=== PATIENT | female | born 1950 | race Caucasian/White ===

== ENCOUNTER 2024-12-21 09:25 | Outpatient (CLI) | payer MEDICARE, SELFPAY ==
--- NOTE | ~2024-12-21 | MM_ITS ---
EXAMINATION: MM screening ema BI w bruna HISTORY: Screening TECHNIQUE: Craniocaudal and mediolateral oblique 3-D tomosynthesis images were obtained and synthetic 2-D images were generated. CAD analysis was submitted and interpreted. COMPARISON: No prior mammogram is available for comparison at this institution. BREAST PARENCHYMAL COMPOSITION: Not dense: There are scattered areas of fibroglandular density. FINDINGS: There is no evidence of suspicious mass, calcification, or architectural distortion to sugg est malignancy in either breast. There has been no suspicious interval change. IMPRESSION: 1. No mammographic evidence of malignancy. 2. Recommend routine screening mammography in one year. BI-RADS Category 1: Negative Reviewed, dictated and finalized at location B.
--- OUTSIDE RECORDS SUMMARY | 2024-12-21 10:14 | XMS_ITS | Data Portability ---
Author Organization [place] [facility], Main Office Address [address] [place] [address] Care Team Providers Care Psychology Assistant Name Role Phone JOANNE MENDEZ Primary Care Provider Assessment Encounter Date Assessment Date Assessment LastModified by Organization Details LastModified Time 12/03/2022 12/03/2022 We will continue to monitor exam is normal keep regular appointment [email or web address] Not available 12/07/2022 23:04:18 12/19/2022 12/19/2022 Shoulder good Dyslipidemia atorvastatin Hypertension amlodipine monotherapy for now Low vitamin-D continue supplementation Annual wellness visit concluded mammogram and bone density ordered Follow-up 6 months [email or web address] Not available 12/27/2022 17:19:38 04/17/2023 04/17/2023 Hyperlipidemia atorvastatin low vitamin-D supplementation hypertension amlodipine follow-up 6 months continue current therapy [email or web address] Not available 04/26/2023 16:54:21 Plan of Treatment Reminders Order Date Submit Date Provider Last Modified By Organization Details Last Modified Time Details Appointments None recorded. Lab vitamin D, 25-hydroxy, total, serum 2022 023 [email or web address] [facility] (Lab), [address] [place], [address], 4 11:14:32 CBC w/ auto diff 2022 023 [email or web address] [facility] (Lab), [address] [place], [address], 3 09:21:27 lipid panel, serum 2022 023 [email or web address] [facility] (Lab), [address] [place], [address], 09:21:27 CMP, serum or plasma 2022 023 [email or web address] [facility] (Lab), [address] [place], [address], 09:21:27 Referral None recorded. Procedures None recorded. Surgeries None recorded. Imaging None recorded. Medication Orders ergocalcife rol (vitamin D2) 1,250 mcg (50,000 unit) capsule 2022 023 [email or web address] [id number], [address], [place], [id number], 16:24:45 Patient TargetsNo targets recorded. Patient Instructions Encounter Date Encounter Id Patient Instructions Last Modified By Organization Details Last Modified Time 12/19/2022 [id number] dementia rating scale-2* [email or web address] Not available 12/19/2022 16:24:45 alcohol misuse* [email or web address] Not available 12/19/2022 16:24:45 depression screening* [email or web address] Not available 12/19/2022 16:24:45 multi-dimensiona l health assessment questionnaire* [email or web address] Not available 12/19/2022 16:24:45 Personalized [facility] Plan and Screening Recommendations Advance Directives - Do you have one? No You have indicated that you are capable of preparing your advance care directive Advance Directives - Do we have your advance directive on file in your health record? Primary Prevention/Interven tion (prevents or decreases the chance of common diseases from occurring) Smoking Risk: Non Smoker Alcohol Misuse Screening: Negative Weight: Appropriate Overwei ght continue your current weight loss efforts try to lose 5% of your body weight Physical activity: Need more exercise/physical activity minimum of 10-20 minutes of activity that causes mild breathlessness/day Nutrition: Good Fall Risk (screened today): Low Intermediate Refer to attached handout Preventing Falls: After your Visit Vaccines Pneumococcal: Ordered Recommended today Recommended today, but you have declined No further needed Influenza: Your next one in the fall of this year Chronic Disease Risks Stroke: Low Risk Intermediate Risk Heart Attack: Low risk Intermediate Risk Clogging of the Arteries: Low risk Intermediate Risk Diabetes: Low Risk I have no recommendations Secondary Prevention/Interven tion (detects treatable diseases before they may cause symptoms, disability, or ) Breast Cancer Screening with mammogram: Your next mammogram: Ordered Recommended today Cervical/Uterine/Ov vangie Cancer Screening: No screening necessary Osteoporosis Screening: Your next DEXA in: Ordered Recomme nded today Date Screening Last Performed: 12/19/14 Colon Cancer Screening: Colonoscopy Date Screening Last Performed: 12/14/2014 Eye Disease Screening: Dementia Risk: Low I have no recommendations Depression Screening: Negative Not available 12/19/2022 12:04:16 Reason for Referral None Reported. Results Created Date Observation Date Name Description Value Unit Range Abnormal Flag Note LastModifiedBy Organization Detail LastModifiedTime 04/25/2004/25/2022 LIPID PANEL LDL cholesterol, calculated 141 mg/dL 0-130 high NIH DEAN NSUS REPOR T RECOM MENDA TIONS FOR LDL: ADULT CHILD LOW RISK <130 <110 (OPTI MAL LDL) <100 ----- BORDE RLINE : 130-1 59 ----- HIGH RISK: >160 >130 A TRIGL YCERI DE RESUL T >400 INVAL IDATE S THE CALCU LATIO N FOR LDL FRACT IONAT ION - THE LDL RESUL T WILL NOT BE REPOR BHARGAV. Not Available [facility] (Lab) [address] [place], [address], 04/25/2022 13:48:58 04/25/2004/25/2022 LIPID PANEL cholesterol 231 mg/dL 140-19 9 high NIH DEAN NSUS RECOM MENDA TION FOR LONNY STERO L: ADULT CHILD LOW RISK: <200 <170 BORDE RLINE : <200- 239 ----- HIGH RISK: >240 >200 Not Available [facility] (Lab) [address] [place], [address], 04/25/2022 13:48:58 04/25/2004/25/2022 LIPID PANEL triglyceride s 86 mg/dL 0-150 NIH DEAN NSUS REPOR T RECOM MENDA TION FOR TRIGL YCERI ILYA: ADULT CHILD LOW RISK: <150 ----- BODER LINE: 150-1 99 ----- HIGH RISK: >200 ----- Not Available [facility] (Lab) [address] [place], [address], 04/25/2022 13:48:58 04/25/20 22 04/25/2022 LIPID PANEL HDL cholesterol 73 mg/dL 40- Not Available [facility] (Lab) [address] [place], [address], 04/25/2022 13:48:58 04/25/20 22 04/25/2022 COMPR EHENS KYLAH METAB OLIC PANEL anion gap 12.6 mmol/ L 14-22 low Not Available [facility] (Lab) [address] [place], [address], 04/25/2022 13:48:53 04/25/20 22 04/25/2022 COMPR EHENS KYLAH METAB OLIC PANEL sodium 140 mmol/ L 137-14 5 Not Available [facility] (Lab) [address] [place], [address], 04/25/2022 13:48:53 04/25/20 22 04/25/2022 COMPR EHENS KYLAH METAB OLIC PANEL potassium 4.6 mmol/ L 3.5-5. 1 Not Available [facility] (Lab) [address] [place], [address], 04/25/2022 13:48:53 04/25/20 22 04/25/2022 COMPR EHENS KYLAH METAB OLIC PANEL chloride 106 mmol/ L 98-107 Not Available [facility] (Lab) [address] [place], [address], 04/25/2022 13:48:53 04/25/20 22 04/25/2022 COMPR EHENS KYLAH METAB OLIC PANEL carbon dioxide 26 mmol/ L 22-30 Not Available [facility] (Lab) [address] [place], [address], 04/25/2022 13:48:53 04/25/20 22 04/25/2022 COMPR EHENS KYLAH METAB OLIC PANEL glucose 81 mg/dL 70-99 Not Available [facility] (Lab) [address] [place], [address], 04/25/2022 13:48:53 04/25/20 22 04/25/2022 COMPR EHENS KYLAH METAB OLIC PANEL BUN 14 mg/dL 8-19 Not Available [facility] (Lab) [address] [place], [address], 04/25/2022 13:48:53 04/25/20 22 04/25/2022 COMPR EHENS KYLAH METAB OLIC PANEL creatinine 0.77 mg/dL 0.66-1 .25 Not Available [facility] (Lab) [address] [place], [address], 04/25/2022 13:48:53 04/25/20 22 04/25/2022 COMPR EHENS KYLAH METAB OLIC PANEL GFR >60 Refer ence Range : [place] GFR Healt hy Adult : >60 mL/mi n/1.7 3 m2 Chron ic Kidne y Disea se: 15-60 mL/mi n/1.7 3 m2 Kidne y Failu re: <15/m L/min /1.73 m2 www.n iddk. nih.g ov The MDRD study equat ion has not been valid ated in child oz <18 years of age; pregn ant women ; the elder ly >85 years of age; or in some racia l or ethni c subgr oups, such as Hispa nics. Outsi de the valid ated monica eters , estim ated GFR is less accur ate, requi ring clini aurea judgm ent on a case- by-ca se basis . Clini aurea inter preta tion for other races and ages must be made by the clini martin. The MDRD study equat ion has not been valid ated for the evalu ation of serum creat inine relat ed to nutri kristi l statu s or medic ation usage . For perso ns <18 years of age, a pedia tric GFR calcu lator is avail able on the [facility] websi te: https :[email or web address] clark.bo khany.o rg/pr ofess ional s/kdo qi/gf r_cal culat or Not Available [facility] (Lab) [address] [place], [address], 04/25/2022 13:48:53 04/25/20 22 04/25/2022 COMPR EHENS KYLAH METAB OLIC PANEL alkaline phosphatase 77 U/L 38-126 Not Available [facility] (Lab) [address] [place], [address], 04/25/2022 13:48:53 04/25/20 22 04/25/2022 COMPR EHENS KYLAH METAB OLIC PANEL alanine aminotransfe rase 19 U/L 0-35 Not Available [facility] (Lab) [address] [place], [address], 04/25/2022 13:48:53 04/25/20 22 04/25/2022 COMPR EHENS KYLAH METAB OLIC PANEL aspartate aminotransfe rase 28 U/L 15-37 Not Available [facility] (Lab) [address] [place], [address], 04/25/2022 13:48:53 04/25/20 22 04/25/2022 COMPR EHENS KYLAH METAB OLIC PANEL bilirubin, total 0.50 mg/dL 0.20-1 .30 Not Available [facility] (Lab) [address] [place], [address], 04/25/2022 13:48:53 04/25/20 22 04/25/2022 COMPR EHENS KYLAH METAB OLIC PANEL calcium 9.2 mg/dL 8.4-10 .2 Not Available [facility] (Lab) [address] [place], [address], 04/25/2022 13:48:53 04/25/20 22 04/25/2022 COMPR EHENS KYLAH METAB OLIC PANEL total protein 6.9 g/dL 6.3-8. 2 Not Available [facility] (Lab) [address] [place], [address], 04/25/2022 13:48:53 04/25/20 22 04/25/2022 COMPR EHENS KYLAH METAB OLIC PANEL albumin 4.1 g/dL 3.0-4. 4 Not Available [facility] (Lab) [address] [place], [address], 04/25/2022 13:48:53 04/25/20 22 04/25/2022 COMPR EHENS KYLAH METAB OLIC PANEL globulin 2.8 g/dL 2.6-4. 2 Not Available [facility] (Lab) [address] [place], [address], 04/25/2022 13:48:53 04/25/20 22 04/25/2022 COMPR EHENS KYLAH METAB OLIC PANEL A/G ratio 1.5 ratio 1.0-2. 0 Not Available [facility] (Lab) [address] [place], [address], 04/25/2022 13:48:53 04/25/20 22 04/25/2022 VITAM IN D 25-HY DROXY [id number] 29.2 NG/mL 30-100 low Vitam in D Statu s: Defic ient: <20 ng/mL Insuf ficie nt: 20-29 ng/mL Suffi cient : 30-10 0 ng/mL Not Available [facility] (Lab) [address] [place], [address], 04/25/2022 14:10:05 12/13/19 23 12/12/2022 CBC/C OMPLE TE BLD COUNT W/DIF F white blood cells 8.0 x10'3 /uL 4.2-10 .8 Not Available [facility] (Lab) [address] [place], [address], 12/12/2022 10:37:39 12/13/19 23 12/12/2022 CBC/C OMPLE TE BLD COUNT W/DIF F red blood cells 4.38 x10'6 /uL 3.80-5 .20 Not Available [facility] (Lab) [address] [place], [address], 12/12/2022 10:37:39 12/13/19 23 12/12/2022 CBC/C OMPLE TE BLD COUNT W/DIF F hemoglobin 12.1 g/dL 12.0-1 5.6 Not Available [facility] (Lab) [address] [place], [address], 12/12/2022 10:37:39 12/13/19 23 12/12/2022 CBC/C OMPLE TE BLD COUNT W/DIF F hematocrit 37.8 % 35.7-4 5.7 Not Available [facility] (Lab) [address] [place], [address], 12/12/2022 10:37:39 12/13/19 23 12/12/2022 CBC/C OMPLE TE BLD COUNT W/DIF F mean red cell volume 86.3 fL 82.0-9 9.0 Not Available [facility] (Lab) [address] [place], [address], 12/12/2022 10:37:39 12/13/19 23 12/12/2022 CBC/C OMPLE TE BLD COUNT W/DIF F mean red cell hemoglobin 27.6 pg 27.0-3 3.0 Not Available [facility] (Lab) [address] [place], [address], 12/12/2022 10:37:39 12/13/19 23 12/12/2022 CBC/C OMPLE TE BLD COUNT W/DIF F mean RBC HGB concentratio n 32.0 g/dL 31.0-3 6.0 Not Available [facility] (Lab) [address] [place], [address], 12/12/2022 10:37:39 12/13/19 23 12/12/2022 CBC/C OMPLE TE BLD COUNT W/DIF F red cell distribution width 13.7 % 11.8-1 5.5 Not Available [facility] (Lab) [address] [place], [address], 12/12/2022 10:37:39 12/13/19 23 12/12/2022 CBC/C OMPLE TE BLD COUNT W/DIF F platelets 255 x10'3 /uL 150-40 0 Not Available [facility] (Lab) [address] [place], [address], 12/12/2022 10:37:39 12/13/19 23 12/12/2022 CBC/C OMPLE TE BLD COUNT W/DIF F mean platelet volume 10.4 fL 9.0-12 .4 Not Available [facility] (Lab) [address] [place], [address], 12/12/2022 10:37:39 12/13/19 23 12/12/2022 CBC/C OMPLE TE BLD COUNT W/DIF F neutrophils 63.1 % 39.0-7 2.0 Not Available [facility] (Lab) [address] [place], [address], 12/12/2022 10:37:39 12/13/19 23 12/12/2022 CBC/C OMPLE TE BLD COUNT W/DIF F lymphocytes 25.6 % 16.0-4 7.0 Not Available [facility] (Lab) [address] [place], [address], 12/12/2022 10:37:39 12/13/19 23 12/12/2022 CBC/C OMPLE TE BLD COUNT W/DIF F monocytes 7.9 % 5.0-12 .0 Not Available [facility] (Lab) [address] [place], [address], 12/12/2022 10:37:39 12/13/19 23 12/12/2022 CBC/C OMPLE TE BLD COUNT W/DIF F eosinophils 2.3 % 1.0-7. 0 Not Available [facility] (Lab) [address] [place], [address], 12/12/2022 10:37:39 12/13/19 23 12/12/2022 CBC/C OMPLE TE BLD COUNT W/DIF F basophils 0.8 % 0.0-2. 0 Not Available [facility] (Lab) [address] [place], [address], 12/12/2022 10:37:39 12/13/19 23 12/12/2022 CBC/C OMPLE TE BLD COUNT W/DIF F immature granulocytes 0.3 % 0.00-0 .50 Not Available [facility] (Lab) [address] [place], [address], 12/12/2022 10:37:39 12/13/19 23 12/12/2022 CBC/C OMPLE TE BLD COUNT W/DIF F neutrophils, absolute count 5.04 x10'3 /uL 1.5-8. 0 Not Available [facility] (Lab) [address] [place], [address], 12/12/2022 10:37:39 12/13/19 23 12/12/2022 CBC/C OMPLE TE BLD COUNT W/DIF F lymphocytes, absolute count 2.04 x10'3 /uL 1.07-3 .43 Not Available [facility] (Lab) [address] [place], [address], 12/12/2022 10:37:39 12/13/19 23 12/12/2022 CBC/C OMPLE TE BLD COUNT W/DIF F monocytes, absolute count 0.63 x10'3 /uL 0.29-0 .99 Not Available [facility] (Lab) [address] [place], [address], 12/12/2022 10:37:39 12/13/19 23 12/12/2022 CBC/C OMPLE TE BLD COUNT W/DIF F eosinophils, absolute count 0.18 x10'3 /uL 0.02-0 .53 Not Available [facility] (Lab) [address] [place], [address], 12/12/2022 10:37:39 12/13/19 23 12/12/2022 CBC/C OMPLE TE BLD COUNT W/DIF F basophils, absolute count 0.06 x10'3 /uL 0.01-0 .08 Not Available [facility] (Lab) [address] [place], [address], 12/12/2022 10:37:39 12/13/19 23 12/12/2022 CBC/C OMPLE TE BLD COUNT W/DIF F immature granulocytes ,absolute 0.02 x10'3 /uL 0.00-0 .05 Not Available [facility] (Lab) [address] [place], [address], 12/12/2022 10:37:39 12/13/19 23 12/12/2022 CBC/C OMPLE TE BLD COUNT W/DIF F nucleated red blood cells 0.0 % -0 Not Available [facility] (Lab) [address] [place], [address], 12/12/2022 10:37:39 12/13/19 23 12/12/2022 CBC/C OMPLE TE BLD COUNT W/DIF F NRBC# 0.00 x10'3 /uL Not Available [facility] (Lab) [address] [place], [address], 12/12/2022 10:37:39 12/13/19 23 12/12/2022 COMPR EHENS KYLAH METAB OLIC PANEL sodium 137 mmol/ L 137-14 5 Not Available [facility] (Lab) [address] [place], [address], 12/12/2022 11:09:43 12/13/19 23 12/12/2022 COMPR EHENS KYLAH METAB OLIC PANEL potassium 4.1 mmol/ L 3.5-5. 1 Not Available [facility] (Lab) [address] [place], [address], 12/12/2022 11:09:43 12/13/19 23 12/12/2022 COMPR EHENS KYLAH METAB OLIC PANEL chloride 105 mmol/ L 98-107 Not Available [facility] (Lab) [address] [place], [address], 12/12/2022 11:09:43 12/13/19 23 12/12/2022 COMPR EHENS KYLAH METAB OLIC PANEL carbon dioxide 23 mmol/ L 22-30 Not Available [facility] (Lab) [address] [place], [address], 12/12/2022 11:09:43 12/13/19 23 12/12/2022 COMPR EHENS KYLAH METAB OLIC PANEL anion gap 13.1 mmol/ L 14-22 low Not Available [facility] (Lab) [address] [place], [address], 12/12/2022 11:09:43 12/13/19 23 12/12/2022 COMPR EHENS KYLAH METAB OLIC PANEL glucose 113 mg/dL 70-99 high Not Available [facility] (Lab) [address] [place], [address], 12/12/2022 11:09:43 12/13/19 23 12/12/2022 COMPR EHENS KYLAH METAB OLIC PANEL BUN 32 mg/dL 8-19 high Not Available [facility] (Lab) [address] [place], [address], 12/12/2022 11:09:43 12/13/19 23 12/12/2022 COMPR EHENS KYLHA METAB OLIC PANEL creatinine 1.11 mg/dL 0.66-1 .25 Not Available [facility] (Lab) [address] [place], [address], 12/12/2022 11:09:43 12/13/19 23 12/12/2022 COMPR EHENS KYLAH METAB OLIC PANEL GFR 49 Refer ence Range : [place] GFR Healt hy Adult : >60 mL/mi n/1.7 3 m2 Chron ic Kidne y Disea se: 15-60 mL/mi n/1.7 3 m2 Kidne y Failu re: <15/m L/min /1.73 m2 www.n iddk. nih.g ov The MDRD study equat ion has not been valid ated in child oz <18 years of age; pregn ant women ; the elder ly >85 years of age; or in some racia l or ethni c subgr oups, such as [facility] nics. Outsi de the valid ated monica eters , estim ated GFR is less accur ate, requi ring clini aurea judgm ent on a case- by-ca se basis . Clini aurea inter preta tion for other races and ages must be made by the clini martin. The MDRD study equat ion has not been valid ated for the evalu ation of serum creat inine relat ed to nutri kristi l statu s or medic ation usage . For perso ns <18 years of age, a pedia tric GFR calcu lator is avail able on the F websi te: https ://nicolasa w.bo khany.o rg/pr ofess ional s/kdo qi/gf r_cal culat or Not Available [facility] (Lab) [address] [facility], [address], 12/12/2022 11:09:43 12/13/19 23 12/12/2022 COMPR EHENS KYLAH METAB OLIC PANEL alkaline phosphatase 90 U/L 38-126 Not Available [facility] (Lab) [address] [place], [address], 12/12/2022 11:09:43 12/13/19 23 12/12/2022 COMPR EHENS KYLAH METAB OLIC PANEL alanine aminotransfe rase 19 U/L 0-35 Not Available [facility] (Lab) [address] [place], [address], 12/12/2022 11:09:43 12/13/19 23 12/12/2022 COMPR EHENS KYLAH METAB OLIC PANEL aspartate aminotransfe rase 23 U/L 15-37 Not Available [facility] (Lab) [address] [place], [address], 12/12/2022 11:09:43 12/13/19 23 12/12/2022 COMPR EHENS KYLAH METAB OLIC PANEL bilirubin, total 0.70 mg/dL 0.20-1 .30 Not Available [facility] (Lab) [address] [place], [address], 12/12/2022 11:09:43 12/13/19 23 12/12/2022 COMPR EHENS KYLAH METAB OLIC PANEL calcium 9.7 mg/dL 8.4-10 .2 Not Available [facility] (Lab) [address] [place], [address], 12/12/2022 11:09:43 12/13/19 23 12/12/2022 COMPR EHENS KYLAH METAB OLIC PANEL total protein 7.7 g/dL 6.3-8. 2 Not Available [facility] (Lab) [address] [place], [address], 12/12/2022 11:09:43 12/13/19 23 12/12/2022 COMPR EHENS KYLAH METAB OLIC PANEL albumin 4.6 g/dL 3.0-4. 4 high Not Available [facility] (Lab) [address] [facility] [place], [address], 12/12/2022 11:09:43 12/13/19 23 12/12/2022 COMPR EHENS KYLAH METAB OLIC PANEL globulin 3.1 g/dL 2.6-4. 2 Not Available [facility] (Lab) [address] [place], [address], 12/12/2022 11:09:43 12/13/19 23 12/12/2022 COMPR EHENS KYLAH METAB OLIC PANEL A/G ratio 1.5 ratio 1.0-2. 0 Not Available [facility] (Lab) [address] [place], [address], 12/12/2022 11:09:43 04/17/20 23 04/17/2023 CBC/C OMPLE TE BLD COUNT W/DIF F white blood cells 6.0 x10'3 /uL 4.2-10 .8 Not Available [facility] (Lab) [address] [place], [address], 04/17/2023 11:31:25 04/17/20 23 04/17/2023 CBC/C OMPLE TE BLD COUNT W/DIF F red blood cells 4.34 x10'6 /uL 3.80-5 .20 Not Available [facility] (Lab) [address] [place], [address], 04/17/2023 11:31:25 04/17/20 23 04/17/2023 CBC/C OMPLE TE BLD COUNT W/DIF F hemoglobin 12.2 g/dL 12.0-1 5.6 Not Available [facility] (Lab) [address] [place], [address], 04/17/2023 11:31:25 04/17/20 23 04/17/2023 CBC/C OMPLE TE BLD COUNT W/DIF F hematocrit 38.5 % 35.7-4 5.7 Not Available [facility] (Lab) [address] [place], [address], 04/17/2023 11:31:25 04/17/20 23 04/17/2023 CBC/C OMPLE TE BLD COUNT W/DIF F mean red cell volume 88.7 fL 82.0-9 9.0 Not Available [facility] (Lab) [address] [place], [address], 04/17/2023 11:31:25 04/17/20 23 04/17/2023 CBC/C OMPLE TE BLD COUNT W/DIF F mean red cell hemoglobin 28.1 pg 27.0-3 3.0 Not Available [facility] (Lab) [address] [place], [address], 04/17/2023 11:31:25 04/17/20 23 04/17/2023 CBC/C OMPLE TE BLD COUNT W/DIF F mean RBC HGB concentratio n 31.7 g/dL 31.0-3 6.0 Not Available [facility] (Lab) [address] [place], [address], 04/17/2023 11:31:25 04/17/20 23 04/17/2023 CBC/C OMPLE TE BLD COUNT W/DIF F red cell distribution width 13.3 % 11.8-1 5.5 Not Available [facility] (Lab) [address] [place], [address], 04/17/2023 11:31:25 04/17/20 23 04/17/2023 CBC/C OMPLE TE BLD COUNT W/DIF F platelets 278 x10'3 /uL 150-40 0 Not Available [facility] (Lab) [address] [place], [address], 04/17/2023 11:31:25 04/17/20 23 04/17/2023 CBC/C OMPLE TE BLD COUNT W/DIF F mean platelet volume 10.6 fL 9.0-12 .4 Not Available [facility] (Lab) [address] [place], [address], 04/17/2023 11:31:25 04/17/20 23 04/17/2023 CBC/C OMPLE TE BLD COUNT W/DIF F neutrophils 55.9 % 39.0-7 2.0 Not Available [facility] (Lab) [address] [place], [address], 04/17/2023 11:31:25 04/17/20 23 04/17/2023 CBC/C OMPLE TE BLD COUNT W/DIF F lymphocytes 30.1 % 16.0-4 7.0 Not Available [facility] (Lab) [address] [place], [address], 04/17/2023 11:31:25 04/17/20 23 04/17/2023 CBC/C OMPLE TE BLD COUNT W/DIF F monocytes 9.7 % 5.0-12 .0 Not Available [facility] (Lab) [address] [place], [address], 04/17/2023 11:31:25 04/17/20 23 04/17/2023 CBC/C OMPLE TE BLD COUNT W/DIF F eosinophils 3.0 % 1.0-7. 0 Not Available [facility] (Lab) [address] [place], [address], 04/17/2023 11:31:25 04/17/20 23 04/17/2023 CBC/C OMPLE TE BLD COUNT W/DIF F basophils 1.0 % 0.0-2. 0 Not Available [facility] (Lab) [address] [place], [address], 04/17/2023 11:31:25 04/17/20 23 04/17/2023 CBC/C OMPLE TE BLD COUNT W/DIF F immature granulocytes 0.3 % 0.00-0 .50 Not Available [facility] (Lab) [address] [place], [address], 04/17/2023 11:31:25 04/17/20 23 04/17/2023 CBC/C OMPLE TE BLD COUNT W/DIF F neutrophils, absolute count 3.36 x10'3 /uL 1.5-8. 0 Not Available [facility] (Lab) [address] [place], [address], 04/17/2023 11:31:25 04/17/20 23 04/17/2023 CBC/C OMPLE TE BLD COUNT W/DIF F lymphocytes, absolute count 1.81 x10'3 /uL 1.07-3 .43 Not Available [facility] (Lab) [address] [place], [address], 04/17/2023 11:31:25 04/17/20 23 04/17/2023 CBC/C OMPLE TE BLD COUNT W/DIF F monocytes, absolute count 0.58 x10'3 /uL 0.29-0 .99 Not Available [facility] (Lab) [address] [place], [address], 04/17/2023 11:31:25 04/17/20 23 04/17/2023 CBC/C OMPLE TE BLD COUNT W/DIF F eosinophils, absolute count 0.18 x10'3 /uL 0.02-0 .53 Not Available [facility] (Lab) [address] [place], [address], 04/17/2023 11:31:25 04/17/20 23 04/17/2023 CBC/C OMPLE TE BLD COUNT W/DIF F basophils, absolute count 0.06 x10'3 /uL 0.01-0 .08 Not Available [facility] (Lab) [address] [place], [address], 04/17/2023 11:31:25 04/17/20 23 04/17/2023 CBC/C OMPLE TE BLD COUNT W/DIF F immature granulocytes ,absolute 0.02 x10'3 /uL 0.00-0 .05 Not Available [facility] (Lab) [address] [place], [address], 04/17/2023 11:31:25 04/17/20 23 04/17/2023 CBC/C OMPLE TE BLD COUNT W/DIF F nucleated red blood cells 0.0 % -0 Not Available [facility] (Lab) [address] [place], [address], 04/17/2023 11:31:25 04/17/20 23 04/17/2023 CBC/C OMPLE TE BLD COUNT W/DIF F NRBC# 0.00 x10'3 /uL Not Available [facility] (Lab) [address] [place], [address], 04/17/2023 11:31:25 04/17/20 23 04/17/2023 LIPID PANEL cholesterol 163 mg/dL 140-19 9 NIH DEAN NSUS RECOM MENDA TION FOR LONNY STERO L: ADULT CHILD LOW RISK: <200 <170 BORDE RLINE : <200- 239 ----- HIGH RISK: >240 >200 Not Available [facility] (Lab) [address] [place], [address], 04/17/2023 12:21:26 04/17/20 23 04/17/2023 LIPID PANEL triglyceride s 70 mg/dL 0-150 NIH DEAN NSUS REPOR T RECOM MENDA TION FOR TRIGL YCERI ILYA: ADULT CHILD LOW RISK: <150 ----- BODER LINE: 150-1 99 ----- HIGH RISK: >200 ----- Not Available [facility] (Lab) [address] [place], [address], 04/17/2023 12:21:26 04/17/20 23 04/17/2023 LIPID PANEL HDL cholesterol 68 mg/dL 40- Not Available [facility] (Lab) [address] [place], [address], 04/17/2023 12:21:26 04/17/20 23 04/17/2023 LIPID PANEL LDL cholesterol, calculated 81 mg/dL 0-130 NIH DEAN NSUS REPOR T RECOM MENDA TIONS FOR LDL: ADULT CHILD LOW RISK <130 <110 (OPTI MAL LDL) <100 ----- ESTHERDE RLINE : 130-1 59 ----- HIGH RISK: >160 >130 A TRIGL YCERI DE RESUL T >400 INVAL IDATE S THE CALCU LATIO N FOR LDL FRACT IONAT ION - THE LDL RESUL T WILL NOT BE REPOR BHARGAV. Not Available [facility] (Lab) [address] [place], [address], 04/17/2023 12:21:26 04/17/20 23 04/17/2023 COMPR EHENS KYLAH METAB OLIC PANEL sodium 139 mmol/ L 137-14 5 Not Available [facility] (Lab) [address] [place], [address], 04/17/2023 12:21:32 04/17/20 23 04/17/2023 COMPR EHENS KYLAH METAB OLIC PANEL potassium 4.2 mmol/ L 3.5-5. 1 Not Available [facility] (Lab) [address] [place], [address], 04/17/2023 12:21:32 04/17/20 23 04/17/2023 COMPR EHENS KYLAH METAB OLIC PANEL chloride 106 mmol/ L 98-107 Not Available [facility] (Lab) [address] [place], [address], 04/17/2023 12:21:32 04/17/20 23 04/17/2023 COMPR EHENS KYLAH METAB OLIC PANEL carbon dioxide 26 mmol/ L 22-30 Not Available [facility] (Lab) [address] [place], [address], 04/17/2023 12:21:32 04/17/20 23 04/17/2023 COMPR EHENS KYLAH METAB OLIC PANEL anion gap 11.2 mmol/ L 14-22 low Not Available [facility] (Lab) [address] [place], [address], 04/17/2023 12:21:32 04/17/20 23 04/17/2023 COMPR EHENS KYLAH METAB OLIC PANEL glucose 92 mg/dL 70-99 Not Available [facility] (Lab) [address] [place], [address], 04/17/2023 12:21:32 04/17/20 23 04/17/2023 COMPR EHENS KYLAH METAB OLIC PANEL BUN 24 mg/dL 8-19 high Not Available [facility] (Lab) [address] [place], [address], 04/17/2023 12:21:32 04/17/20 23 04/17/2023 COMPR EHENS KYLAH METAB OLIC PANEL creatinine 0.88 mg/dL 0.66-1 .25 Not Available [facility] (Lab) [address] [place], [address], 04/17/2023 12:21:32 04/17/20 23 04/17/2023 COMPR EHENS KYLAH METAB OLIC PANEL GFR >60 Refer ence Range : [place] GFR Healt hy Adult : >60 mL/mi n/1.7 3 m2 Chron ic Kidne y Disea se: 15-60 mL/mi n/1.7 3 m2 Kidne y Failu re: <15/m L/min /1.73 m2 www.n iddk. nih.g ov The MDRD study equat ion has not been valid ated in child oz <18 years of age; pregn ant women ; the elder ly >85 years of age; or in some racia l or ethni c subgr oups, such as Hispa nics. Outsi de the valid ated monica eters , estim ated GFR is less accur ate, requi ring clini aurea judgm ent on a case- by-ca se basis . Clini aurea inter preta tion for other races and ages must be made by the clini martin. The MDRD study equat ion has not been valid ated for the evalu ation of serum creat inine relat ed to nutri kristi l statu s or medic ation usage . For perso ns <18 years of age, a pedia tric GFR calcu lator is avail able on the [facility] websi te: https ://nicolasa clark.bo wolfe.o rg/pr ofess ional s/kdo qi/gf r_cal culat or Not Available [facility] (Lab) [address] [place], [address], 04/17/2023 12:21:32 04/17/20 23 04/17/2023 COMPR EHENS KYLAH METAB OLIC PANEL alkaline phosphatase 75 U/L 38-126 Not Available [facility] (Lab) [address] [place], [address], 04/17/2023 12:21:32 04/17/20 23 04/17/2023 COMPR EHENS KYLAH METAB OLIC PANEL alanine aminotransfe rase 19 U/L 0-35 Not Available [facility] (Lab) [address] [place], [address], 04/17/2023 12:21:32 04/17/20 23 04/17/2023 COMPR EHENS KYLAH METAB OLIC PANEL aspartate aminotransfe rase 26 U/L 15-37 Not Available [facility] (Lab) [address] [place], [address], 04/17/2023 12:21:32 04/17/20 23 04/17/2023 COMPR EHENS KYLAH METAB OLIC PANEL bilirubin, total 0.50 mg/dL 0.20-1 .30 Not Available [facility] (Lab) [address] [place], [address], 04/17/2023 12:21:32 04/17/20 23 04/17/2023 COMPR EHENS KYLAH METAB OLIC PANEL calcium 9.3 mg/dL 8.4-10 .2 Not Available [facility] (Lab) [address] [place], [address], 04/17/2023 12:21:32 04/17/20 23 04/17/2023 COMPR EHENS KYLAH METAB OLIC PANEL total protein 7.5 g/dL 6.3-8. 2 Not Available [facility] (Lab) [address] [place], [address], 04/17/2023 12:21:32 04/17/20 23 04/17/2023 COMPR EHENS KYLAH METAB OLIC PANEL albumin 4.4 g/dL 3.0-4. 4 Not Available [facility] (Lab) [address] [place], [address], 04/17/2023 12:21:32 04/17/20 23 04/17/2023 COMPR EHENS KYLAH METAB OLIC PANEL globulin 3.1 g/dL 2.6-4. 2 Not Available [facility] (Lab) [address] [place], [address], 04/17/2023 12:21:32 04/17/20 23 04/17/2023 COMPR EHENS KYLAH METAB OLIC PANEL A/G ratio 1.4 ratio 1.0-2. 0 Not Available [facility] (Lab) [address] [place], [address], 04/17/2023 12:21:32 04/17/20 23 04/17/2023 VITAM IN D 25-HY DROXY [id number] 62.9 NG/mL 30-100 Vitam in D Statu s: Defic ient: <20 ng/mL Insuf ficie nt: 20-29 ng/mL Suffi cient : 30-10 0 ng/mL Not Available [facility] (Lab) [address] [facility] [place], [address], 04/17/2023 13:38:43 01/17/20 23 01/16/2023 DEXA, axial skele ton [facility] [address], [place] [address] [phone] Patien t Name: CAITLIN SORIANO Access ion #: [id number] Sex: F : 1949 3 Locati on: RAD Attend ing Physic fadi: ATILIO MENDEZ Orderi ng Physic fadi: ATILIO MENDEZ Exam Date: 023 8:16 AM Exam Name: XR DEXA-H IPS PELVIS SPINE Admitt ing Diagno sis(es ): RADIOL OGY REPORT - FINAL EXAM: XR DEXA-H IPS PELVIS SPINE HISTOR Y: MENOPA USAL 72-yea r-old female with osteop orosis screen ing. COMPAR BETO: DEXA scan dated 2020 TECHNI QUE: Dual energy x-ray of absorp tion examin ation of the bilate ral hips and lumbar spine in AP projec tion was perfor med. FINDIN GS: Lumbar Spine (L2-L4 ): The mean bone minera l densit y is 1.127 g/cm2 hydrox yapati te, correl ating with a T-scor e of -0.7. BMD of the lumbar spine is increa sed 7.4% since the prior study. Bilate ral hips: The mean bone minera l densit y is 0.767 g/cm2 calciu m Page 1 of 2 [facility] Patinissa t Name: CAITLIN SORIANO Access ion #: [id number] Sex: F : 1949 3 Exam Date: 8:16 AM Exam Name: XR DEXA-H IPS PELVIS SPINE Admitt ing Diagno sis(es ): hydrox yapati te, correl ating with a T-scor e of -1.9. BMD of the hips is decrea sed 0.4% since the prior study. IMPRES BARTOLOME: 1. The patien t's lumbar spine T-scor e is consis tent with normal bone minera l densit y overal l. It should be noted that the BMD at L1 and L2 is consis tent with osteop enia. 2. The patien t's bilate ral hip T-scor e is consis tent with osteop enia. Accord ing to the World Health Organi zation , T-scor e values greate r than -1.0 are normal , values betwee n -1.0 and -2.5 are catego rized as osteop enia, T-scor e of -2.5 or more are catego rized as osteop orosis . Create d and electr onical ly signed by: Danilo woodward MD Signed Date: 9:06 AM (CT) Dictat ed by: Danilo woodward MD DD: 9:06 AM (CT) DT: 9:06 AM (CT) Page 2 of 2 [email or web address] [facility] (Imaging) [address] [place], [address], 04/17/2023 13:43:05 01/17/20 23 01/16/2023 scree shayna breas t liyah, bilat [facility] [address] [place] [address] Patien t Name: CAITLIN SORIANO Access ion #: [id number] Sex: F : 1949 3 Locati on: RAD Attend ing Physic fadi: ATILIO MENDEZ Orderi ng Physic fadi: ATILIO MENDEZ Exam Date: 8:16 AM Exam Name: MG [place] BREAST LIYAH BILAT Admitt ing Diagno sis(es ): MAMMOG HANNA REPORT - FINAL EXAM: MG [place] BREAST LIYAH BILAT HISTOR Y: SCREEN ING MAMMOG ALIRIO 72-yea r-old female with no curren t breast compla ints. COMPAR BETO: 2021, 2020 TECHNI QUE: Bilate ral CC and MLO views of the breast s were perfor med. Digita l Mammog hanna images were obtain ed. CAD (compu ter assist ed detect ion) was utiliz ed. 3D Digita l breast tomosy nthesi s was perfor med and used in the interp retati on of images . FINDIN GS: There are scatte red areas of fibrog landul ar densit y. No masses , asymme tries, suspic ious calcif icatio ns, or brook ectura l Page 1 of 2 [facility] Name: CAITLIN SORIANO Access ion #: [id number] Sex: F : 1949 3 Exam Date: 023 8:16 AM Exam Name: MG [place] BREAST LIYAH BILAT Admitt ing Diagno sis(es ): distor tion are seen. IMPRES BARTOLOME: BIRADS 1: Assess ment comple te. Negati ve. Recomm end annual screen ing mammog hanna. Accord ing to the [employer], yearly mammog andrade are recomm ended starti ng at age 40 and contin uing as long as the woman is in good health . Clinic al Breast Exam should be part of the period health exam-a bout every 3 years for women in their 20s and 30s and every year for women 40 and over. Breast self-e xam is an option for women in their 20s. Any breast change noted on the breast self-e xam she would be report ed prompt ly [facility]. A negati ve mammog hanna report should not discou rage follow -up or biopsy of a clinic ally signif icant findin g and/or abnorm ality. Dense breast tissue may obscur e small neopla sms. [facility] entere d into a mammog hanna remind er system with a target date for her next mammog alirio. Create d and electr onical ly signed by: Danilo woodward MD Signed Date: 9:38 AM (CT) Dictat ed by: Danilo woodward MD DD: 9:38 AM (CT) DT: 9:38 AM (CT) Page 2 of 2 [email or web address] [facility] (Imaging) [address] [place], [address], 04/17/2023 13:43:05 Result Notes None recorded. Problems Name Problem SNOMED Code Status Onset Date Resolution Date Notes Provider Name and Address Organization Details Recorded Time Partial thickness rotator cuff tear 462813713 Active 2018 Not Available [facility] 3 07:57:23 Screening mammography Active 2021 Not Available [facility] 3 07:57:23 Shoulder joint pain 208462942 Active Not Available [facility] 3 07:57:23 Adult health examination Active 2021 Not Available [facility] 3 07:57:23 Melena 4167172 Active Not Available [facility] 3 07:57:23 Urostomy present 279224448 Active Not Available [facility] 3 07:57:23 Screening for disorder Active 2021 Not Available 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 Procedures Surgical History Date Name Laterality Status Provider Name and Address Organization Details Recorded Time 12/20/19 Medicare Wellness CPT Code, subsequent completed Tea Zavala RN [place] [facility] 12/19/2022 11:57:51 10/09/19 21 Most Recent Bone Density completed Not Available [facility] 11/05/2022 05:56:28 12/15/19 15 Date of Last Colonoscopy completed Not Available [facility] 11/05/2022 05:56:28 12/15/19 15 Colonoscopy completed Not Available [facility] 11/06/19 05:56:33 Bladder completed Not Available [facility] 09/2022 05:56:33 kidney excision completed Not Available [facility] 11/05/2022 05:56:33 Imaging Results Imaging Date Name Status LastModified by Organiz ation Details LastModified Time 01/16/2023 DEXA, axial skeleton completed [email or web address] [facility] (Imaging) [address] [place], [address], 04/17/2023 13:43:05 01/16/2023 screening breast liyah, bilat completed [email or web address] [facility] (Imaging) [address] [place], [address], 04/17/2023 13:43:05 Procedure Notes None recorded. Medical Equipment None Reported. Allergies No known drug allergies Medications Name Sig Start Date Stop Date Status Note LastModified by Organization Details LastModified Time atorvastati n 10 mg tablet TAKE 1 TABLET BY MOUTH EVERY DAY 2022 active Not Available Not Available Not Avai lable meloxicam 15 mg tablet Take 1 tablet every day by oral route as needed for 7 days. active Not Available Not Available No t Available amlodipine 5 mg tablet TAKE 1 TABLET BY MOUTH EVERY DAY 2022 active Not Available Not Available Not Avai lable ergocalcife rol (vitamin D2) 1,250 mcg (50,000 unit) capsule TAKE 1 CAPSULE BY MOUTH EVERY WEEK active Not Available Not Available No t Available lisinopril 10 mg-hydrochl orothiazide 12.5 mg tablet TAKE 1 TABLET BY MOUTH EVERY DAY 12/19 completed Not Available Not Available Not Available Pneumovax-2 3 25 mcg/0.5 mL injection syringe 12/10 completed Not Available Not Available Not Available peg 3350-electr olytes 236 gram-22.74 gram-6.74 gram-5.86 gram solution Please specify direction s, refills and quantity 05/10 completed Not Available Not Available Not Available Prevnar 13 (PF) 0.5 mL intramuscul ar syringe 10/09 completed Not Available Not Available Not Available Suprep Bowel Prep Kit 17.5 gram-3.13 gram-1.6 gram oral solution DIRECTED active Not Available Not Available No t Available Fluzone High-Dose 1097-6789 (PF) 180 mcg/0.5 mL intramuscul ar syringe 10/09 completed Not Available Not Available Not Available Fluzone High-Dose 1478-5757 (PF) 180 mcg/0.5 mL intramuscul ar syringe 12/10 completed Not Available Not Available Not Available Fluad Quad (6 5yr up)(PF) 60 mcg (15 mcg x 4)/0.5mL IM syringe PHARMACY ADMINISTE RED active Not Available Not Available No t Available Vitals Date Recorded Body mass index (BMI) Body height Heart rate Body temperature Body weight Systolic blood pressure Diastolic blood pressure Provider Name and Address Organization Details Last Updated DateTime 2 31.3 kg/m2 167.64 cm 95 /min 97.8 [degF] 57373.9 2 g 132 mm[Hg] 84 mm[Hg] Not Available [facility] 3 05:57:59 Date Recorded Body mass index (BMI) Body height Heart rate Body temperature Body weight Systolic blood pressure Diastolic blood pressure Systolic blood pressure Diastolic blood pressure Provider Name and Address Organization Details Last Updated DateTime 3 30.8 kg/m2 167.64 cm 92 /min 98.5 [degF] 56701.1 4 g 144 mm[Hg] 92 mm[Hg] 148 mm[Hg] 96 mm[Hg] Not Available [facility] 3 05:58:00 Date Recorded Body height Body mass index (BMI) Body weight Body temperature Heart rate Systolic blood pressure Diastolic blood pressure Provider Name and Address Organization Details Last Updated DateTime 3 167.64 cm 30.2 kg/m2 45260.7 7 g 98.2 [degF] 96 /min 142 mm[Hg] 86 mm[Hg] FIDENCIO Wheeler [facility] 3 14:01:09 Date Recorded Body height Body mass index (BMI) Body weight Body temperature Heart rate Systolic blood pressure Diastolic blood pressure Provider Name and Address Organization Details Last Updated DateTime 3 167.64 cm 30.3 kg/m2 18835.3 7 g 97.7 [degF] 91 /min 120 mm[Hg] 84 mm[Hg] FIDENCIO Wheeler [facility] 3 11:39:15 Date Recorded Pain severity - 0-10 verbal numeric rating [Score] - Reported Provider Name and Address Organization Details Last Updated DateTime 12/19/2022 0 Tea Zavala RN [facility] 12/19/2022 11:58:08 Date Recorded Body height Body mass index (BMI) Body weight Body temperature Heart rate Systolic blood pressure Diastolic blood pressure Provider Name and Address Organization Details Last Updated DateTime 3 167.64 cm 28.4 kg/m2 47538.2 6 g 97.8 [degF] 91 /min 130 mm[Hg] 76 mm[Hg] Char jeffers RN [facility] 3 09:47:05 Social History Question Answer Notes LastModified by Organization Details LastModified Time Tobacco Smoking Status Never Smoker Not Available [facility] 11/05/2022 05:54:22 Do You Have An Advance Directive? No MIGRATION.0301 [id number] Information not available 11/05/2022 What Is Your Level Of Alcohol Consumption? None MIGRATION.0301 070792 Information not available 11/05/2022 Are You Blind Or Do You Have Difficulty Seeing? No MIGRATION.0301 [id number] Information not available 11/05/2022 What Is Your Level Of Caffeine Consumption? Occasional Ice Tea MIGRATION.0301 [id number] Information not available 11/05/2022 In The 14 Days Before Symptom Onset, Have You Had Close Contact With A Laboratory-confi rmed COVID-19 While That Case Was Ill? No MIGRATION.030 993261 Information not available 11/05/2022 In The 14 Days Before Symptom Onset, Have You Had Close Contact With A Person Who Is Under Investigation For COVID-19 While That Person Was Ill? No MIGRATION.030 894606 Information not available 11/05/2022 Are You Currently Employed? Yes Information not available 04/17/2023 Are You Deaf Or Do You Have Serious Difficulty Hearing? No MIGRATION.0301 199923 Information not available 11/05/2022 What Type Of Diet Are You Following? REGULAR MIGRATION.030 465777 Information not available 11/05/2022 What Is The Highest Grade Or Level Of School You Have Completed Or The Highest Degree You Have Received? 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 No MIGRATION.0301 815498 Information not available 11/05/2022 What Is The Fluoride Status Of Your Home? Unknown MIGRATION.0301 [id number] Information not available 11/05/2022 Are There Any Guns Present In Your Home? No MIGRATION.0301 801896 Information not available 11/05/2022 Do You Use Insect Repellent Routinely? No MIGRATION.0301 674179 Information not available 11/05/2022 [facility] MIGR[facility].030 [id number] Information not available 11/05/2022 Presence Of Domestic Violence No Information not available 12/19/2022 Guns Present In The Home? No Information not available 12/19/2022 Are You Able To Care For Yourself? Yes Information not available 12/19/2022 Are You Blind Or Do Yo Have Difficulty Seeing? No Information not available 12/19/2022 Are You Deaf Or Do You Have Serious Difficulty Hearing? No Information not available 12/19/2022 General Stress Level? Moderate Information not available 12/19/2022 Live Alone Of With Others? With Others Information not available 12/19/2022 Do You Have A Medical Power Of It Applications Manager? No MIGRATION.0301 [id number] Information not available 11/05/2022 What Was The Date Of Your Most Recent Tobacco Screening? 04/17/2023 [email or web address] Information not available 04/17/2023 Do You Have Any Pets? Yes MIGRATION.0301 [id number] Information not available 11/05/2022 What Is Your Relationship Status? MIGRATION.0301 976971 Information not available 11/05/2022 Do You Use Your Seat Belt Or Car Seat Routinely? Yes MIGRATION.0301 015233 Information not available 11/05/2022 Do You Have Smoke And Carbon Monoxide Detectors In Your Home? Yes MIGRATION.0301 459853 Information not available 11/05/2022 Are You Passively Exposed To Smoke? No MIGRATION.0301 738841 Information not available 11/05/2022 Are There Any Smokers In Your House? No MIGRATION.0301 995655 Information not available 11/05/2022 What Types Of Sporting Activities Do You Participate In? None MIGRATION.0301 667995 Information not available 11/05/2022 Do You Feel Stressed (tense, Restless, Nervous, Or Anxious, Or Unable To Sleep At Night)? [id number] MIGRATION.0301 726178 Information not available 11/05/2022 Do You Use Any Illicit Or Recreational Drugs? No MIGRATION.0301 924797 Information not available 11/05/2022 Do You Use Sunscreen Routinely? No MIGRATION.0301 931900 Information not available 11/05/2022 Has Tobacco Cessation Counseling Been Provided? No Not Needed-ne mac Smoked MIGRATION.0301 365210 Information not available 11/05/2022 Have You Recently Traveled Abroad? No MIGRATION.0301 791955 Information not available 11/05/2022 Do You Have Any Dietary Restrictions? No MIGRATION.0301 833694 Information not available 11/05/2022 Do You Or Have You Ever Used Any Other Forms Of Tobacco Or Nicotine? No MIGRATION.0301 660748 Information not available 11/05/2022 Sex: Female Functional Status Question Answer Note LastModified by Organizat ion Details LastModified Time Do you have difficulty walking or climbing stairs? No MIGRATION.7368404 026 Information not available 11/05/2022 Do you have transportation difficulties? No MIGRATION.8745808 026 Information not available 11/05/2022 Are you able to walk? YESWOREST MIGRATION.9926986 026 Information not available 11/05/2022 Do you have difficulty doing errands alone? No MIGRATION.2803931 026 Information not available 11/05/2022 Are you able to care for yourself? Yes MIGRATION.3077170 026 Information not available 11/05/2022 Do you have difficulty dressing or bathing? No MIGRATION.8133000 026 Information not available 11/05/2022 What is your exercise level? Occasional Information not available 12/19/2022 Mental Status Question Answer Note LastModified by Organizat ion Details LastModified Time Do you have difficulty concentrating, remembering or making decisions? No MIGRATION.[id number] 6 Information not available 11/05/2022 Family History Relationship Description Onset Age of this Age Resolved Age Notes LastModified by Organization Details LastModified Time Father Heart disease MIGRATION.141 [id number] Not available 11/05/2022 05:56:36 Maternal Grandfather Heart disease MIGRATION.246 [id number] Not available 11/05/2022 05:56:36 Mother Atrial fibrillation MIGRATION.347 [id number] Not available 11/05/2022 05:56:36 Maternal Grandmother Malignant neoplastic disease MIGRATION.952 [id number] Not available 11/05/2022 05:56:36 Medical History Condition Response BLINDNESS N NERVE DISEASE N RHEUMATIC FEVER N BLADDER PROBLEMS N KIDNEY STONES N MRSA N OTHER # 1 N POLIO N LUNG DISEASE/DISORDER N HISTORY OF DRUG ABUSE N RADIATION / CHEMOTHERAPY N COPD N Other # 2 N BLOOD DISEASES N EAR OR HEARING PROBLEMS N MUMPS N SHINGLES N DEPRESSION (INCLUDING POST ) N BOWEL PROBLEMS N STROKE/TIA N ULCERS N BENIGN PROSTATIC HYPERPLASIA N MEASLES N HYPOTENSION N MYOCARDIAL INFARCTION N OBESITY N GERD/NAUSEA N ANEURYSM N URINARY/BLADDER/KIDNEY PROBLEMS N CORONARY ARTERY DISEASE (CAD) N ADDICTION CONCERNS N ENDOMETRIOSIS N Impotence N USE OF BLOOD THINNERS N SKIN PROBLEMS N GASTROINTESTINAL DISORDER N PERIPHERAL VASCULAR DISEASE N MUSCLE,JOINT OR BONE PROBLEMS N GASTROINTESTINAL BLEEDING N BLOOD CLOTS N ASTHMA N CATARACTS N ERECTILE DYSFUNCTION N VARICOSITIES N GI PROBLEMS N Low Testosterone N INFERTILITY N AIDS/HIV N CHEMOTHERAPY / RADIATION N LIVER DISEASE N MALE HYPOGONADISM N HYPERTENSION N Deficiency Y TOURETTE'S N ANXIETY DISORDER N BLOOD TRANSFUSION N ANEMIA/BLOOD DISORDER N CHRONIC EAR INFECTIONS N BRONCHITIS N TUBERCULOSIS N GLAUCOMA N FOOT PROBLEM N DIVERTICULITIS N CHICKENPOX N SLEEP APNEA N INFECTIOUS DISEASE N HEART ARRHYTHMIA N PROSTATE N INSOMNIA N HIGH CHOLESTEROL / HYPERLIPIDEMIA Y HYPERTHYROIDISM N EYE PROBLEMS N EDEMA N CHRONIC PAIN SYNDROME N HYPOTHYROIDISM N CAROTID BLOCKAGE N CONSTIPATION N BACK / NECK PROBLEMS N HAVE YOU BEEN HOSPITALIZED OR SEEN IN [facility] ER IN THE PAST YEAR ? N ATHEROSCLEROSIS N BREAST PROBLEMS N DIALYSIS N ECZEMA N OSTEOPOROSIS N ARTHRITIS N APPENDICITIS N DIABETES, TYPE N BAD TEETH N ENT N HEARTBURN / REFLUX N AUTISM SPECTRUM DISORDER (ASD) N HEPATITIS / LIVER DISEASE N GOUT N SLEEP DISORDER N ALZHEIMER'S DISEASE N Brain Problems N HERPES N DEMENTIA N HEADACHES/MIGRAINES N SEIZURES/EPILEPSY N VASCULAR DISEASE N PACEMAKER N Blood Disorder N DIZZINESS N HEART DISEASE/HEART PROBLEMS N KIDNEY DISEASE N MULTIPLE SCLEROSIS N CARDIAC ARRHYTHMIA N CANCER: SPECIFY Y ATRIAL FIBRILLATION N Gall Stones N PULMONARY EMBOLISM N AUTOIMMUNE DISEASE N Gynecological History Statement/Question Response Date of Last Mammogram 10/09/2020 Date of Last Colonoscopy 12/14/2014 Most Recent Bone Density 10/09/2020 Obstetrics History GPAL:G 0 P 0 0 0 0 Immunizations Vaccine Type Date Status Note Provider Nam e and Address Organization Details Recorded Time influenza, unspecified formulation 2 completed Not Available [facility] 04/20/2023 07:57:23 COVID-19, mRNA, LNP-S, PF, 30 mcg/0.3 mL dose 1 completed Not Available [facility] 04/20/2023 07:57:23 COVID-19, mRNA, LNP-S, PF, 30 mcg/0.3 mL dose 1 completed Not Available [facility] 04/20/2023 07:57:23 Influenza, split virus, quadrivalent, preservative 0 completed Not Available [facility] 04/20/2023 07:57:23 Influenza, high-dose, trivalent, PF 0 completed Not Available [facility] 04/20/2023 07:57:23 pneumococcal polysaccharide PPV23 8 completed Not Available [facility] 04/20/2023 07:57:23 influenza, unspecified formulation 8 completed Not Available [facility] 04/20/2023 07:57:23 Pneumococcal conjugate PCV 13 7 completed Not Available [facility] 04/20/2023 07:57:23 Influenza, high-dose, trivalent, PF 7 completed Not Available [facility] 07:57:23 Past Encounters Encounter ID Performer Location Encounter Start Date Encounter Closed Date Diagnosis/Indication Diagnosis SNOMED-CT Code Diagnosis ICD10 Code Diagnosis Note [id number] [facility] [address] [place] [address] [place] [address] 05/10/2021 00:00:00 05/27/2021 23:18:09 [id number] [facility] [address] Zeeshane., [address] [address] 11/08/2021 00:00:00 12/01/2021 12:59:01 [id number] [facility] [address] [address] 05/02/2022 00:00:00 05/03/2022 17:08:11 [id number] [facility] [address] Kyra., [address] [address] 1 09/26/2022 00:00:00 09/26/2022 16:53:55 [id number] Joanne Mendez MD [facility] [address] [place] [address] [place] [address] 12/03/2022 13:38:40 12/03/2022 15:01:53 Shoulder pain 35082999 M25.519 [id number] Joanne Mendez MD [facility] [address] [place] [address] [place]ra[address] [address] 12/19/2022 11:07:10 12/19/2022 12:28:51 Adult health examination 848420513 Z00.00 Screening for disorder 395165839 Z13.9 Vitamin D deficiency 347 75036 E55.9 Dyslipidemia 707797214 E 78.5 Essential hypertension 45767306 I10 [id number] Joanne Mendez MD [facility] [address] [place] [address] [address] 04/17/2023 09:33:39 04/17/2023 10:25:30 Essential hypertension 13262052 I10 Vitamin D deficiency 347 39635 E55.9 Dyslipidemia 164199813 E 78.5 Health Concerns Section Related Observation LastModified by Organization Detai ls LastModified Time None Recorded Concern Status LastModified by Organization Details LastModified Time None Recorded Advance Directives Directive N: Payers Encounter Date Sequence Insurance Name Policy Number Policy Lind Covered Member ID Lind Member ID Guarantor Name 12/03/2022 1 [employer] (MEDICARE REPLACEMENT/A DVANTAGE - PPO) [id number] Caitlin Soriano [id number] Caitlin Soriano 12/19/2022 1 [employer] (MEDICARE REPLACEMENT/A DVANTAGE - PPO) [id number] [address] Gergen [id number] Caitlin Soriano 04/17/2023 1 [employer] (MEDICARE REPLACEMENT/A DVANTAGE - PPO) [id number] Caitlin Soriano [id number] Caitlin Soriano Notes Date Note Type Note Provider Name and Address Organization Details Recorded Time 3 text/html some heavy lifting and some pain in her right shoulder Joanne Mendez MD [address], [place], [address], [employer] [facility] [employer] 12/07/2022 23:04:36 3 text/html Shoulder resolvedStop lisinopril she would like to monitor her blood pressureDyslipidemia trying to follow a low-fat dietLow vitamin-D level she continues to take supplementation Joanne Mendez MD [address], [place], [address], [facility] 12/27/2022 17:20:20 3 text/html Hypertension no headache no dizziness low vitamin-D no problems with supplementation hyperlipidemia taking atorvastatin no side effect Joanne Mendez MD [address], [place], [address], [facility] 04/26/2023 16:54:39 OBGyn Episode No OBEpisode recorded.
--- OUTSIDE RECORDS SUMMARY | 2024-12-21 10:14 | XMS_ITS | Clinical Summary ---
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 Role Phone Meliton Mendez MD Primary Care Provider [phone] Social History Tobacco Use Types Packs/Day Years Used Date Smoking Tobacco: Never Assessed Comments Unknown Sex and Gender Information Value Date Recorded Sex Assigned at Not on file Legal Sex Female 8:18 AM CDT Gender Identity Not on file Sexual Orientation Not on file Plan of Treatment Health Maintenance Due Date Last Done Comments Colorectal Cancer Screening Colonoscopy (10 Years) 1952 Hepatitis C 1970 DTaP, Tdap and Td Vaccines ( 1 - Tdap) 1971 Mammogram Screening 1992 Zoster Vaccines (1 of 2) 2002 Annual Medicare Wellness Visit 2017 Dexa Scan (General) 2017 Pneumococcal Vaccine: 50+ Ye ars (1 of 1 - PCV) 2017 COVID-19 Vaccine ( - 2023-2 5 season) 2024 PHQ-2 (Physician [facility]) 09/07/2024 RSV Immunization or 60+ Years (1 - 1-dose 75+ series) 2027 Meningococcal B Vaccine Aged Out No l onger eligible based on patient's age to complete this topic Meningococcal Vaccine Aged Out No james ananya eligible based on patient's age to complete this topic RSV Immunizations Under 20 Months Aged Out No longer eligible based on patient's age to complete this topic Insurance [facility] Care Teams Dairy Machine Operator Farmworker Relationship Specialty Start Date End Date Meliton Mendez MD [address] [place] [address] PCP - General INTERNAL MEDICINE 12/09/23
--- OUTSIDE RECORDS SUMMARY | 2024-12-21 10:15 | XMS_ITS | CONTINUITY OF CARE DOCUMENT ---
Author Name najma yao Address Unknown Organization [facility] Address [address] [place] [address] Phone [phone] Care Team Providers Care Drilling Machine Operator Name Role Phone Dominic Sheldon MD Unavailable Meliton Mendez DO Unavailable PROBLEMS Condition Status Date Provider Notes Deep venous thrombosis active Albaro goel INSURANCE PROVIDERS Payer name Policy type / Coverage type Leola red libertarian ID [facility] GR[facility] MEDICARE ADVANTAGE PLAN (PPO) Medicare [id number] TREATMENT PLAN Date Name Venous Doppler Bilalona VALLADARES
--- OUTSIDE RECORDS SUMMARY | 2024-12-21 10:15 | XMS_ITS | Data Portability ---
[facility] [address] [place] [address] Care Team Providers Care Mail Order Biller Name Role Phone JOANNE MENDEZ Primary Care Provider Assessment Encounter Date Assessment Date Assessment LastModified by Organization Details LastModified Time 03/08/2024 03/08/2024 healthy lifestyl e care instructions venous duplex lower extremity stat more recommendations after I get the results [email or web address] Not available 03/27/2024 18:29:33 03/25/2024 03/25/2024 UA CBC CMP low-f at diet blood pressure looks good I will see her back in a month [email or web address] Not available 03/25/2024 21:49:33 04/12/2024 04/12/2024 we will check a urinalysis other medicines we will continue diagnosis have been discussed she will follow up in 3 months Not available 04/30/2024 18:06:14 08/05/2024 08/05/2024 venous duplex of the right lower extremity compression socks 10-20 mmHg blood pressure is controlled dyslipidemia check labs mammogram when she is done with therapy hopefully she will be able to get a good study done. colon cancer screening will be due next year she will follow up with me in 4 months check vitamin-D level Not available 08/05/2024 21:40:09 12/09/2024 12/09/2024 healthy lifestyl e care instructions. Mammogram. Chronic medical problems discussed and appear stable follow up in 4 months Not available 12/09/2024 21:26:47 Plan of Treatment Reminders Order Date Submit Date Provider Last Modified By Organization Details Last Modified Time Details Appointments ANY 15 2024 10:15A Shelton Mendez MD Not available Not available Not available Lab CBC w/ auto diff 2023 024 JAMAL Horn, [address], [address], [place], [address], 08/06/2024 08:12:09 CMP, serum or plasma 2023 024 JAMAL Horn, [address], [address], [place], [address], 08/06/2024 08:12:08 vitamin D, 25-hydrox y, total, serum 2023 024 JAMAL Horn, [address], [address], [place], [address], 08/06/2024 08:12:10 lipid panel, serum 2023 024 JAMAL Horn, [address], [address], [place], [address], 08/06/2024 08:12:06 urinalysi s, microscop ic 2023 024 JAMAL Horn, [address], [address], [place], [address], 04/28/2024 13:12:20 urinalysi s complete, reflex culture 2023 024 JAMAL Horn, [address], [address], [place], [address], 03/30/2024 06:19:24 CBC w/ auto diff 2023 024 AJMAL Horn, [address], [address], [place], [address], 03/30/2024 06:19:24 CMP, serum or plasma 2023 024 JAMAL Horn, [address], [address], [place], [address], 03/30/2024 06:19:22 Referral None recorded. Procedures None recorded. Surgeries None recorded. Imaging MAMMO, screening , digital, bilateral 2024 025 [email or web address] [facility], [address], [address], [place], [address], 12/09/2024 13:24:54 US, duplex, venous, lower extremity 2023 024 [facility], [address], [address], [place], [address], 12/09/2024 13:05:45 US, duplex, venous, lower extremity - elevated D-Dimer 2023 024 [facility] ([facility]), [address], [place], [address], 03/09/2024 11:06:14 Medication Orders ergocalci ferol (vitamin D2) 1,250 mcg (50,000 unit) capsule 2023 024 [email or web address] [id number], [address] , [place], [place], [id number], 08/05/2024 13:41:19 Patient TargetsNo targets recorded. Patient Instructions Encounter Date Encounter Id Patient Instructions Last Modified By Organization Details Last Modified Time 03/08/2024 [id number] A healthy lifestyle: care instructions Not available 03/08/2024 14:21:08 12/09/2024 [id number] A healthy lifestyle: care instructions Not available 12/09/2024 13:24:54 Reason for Referral None Reported. Results Created Date Observation Date Name Description Value Unit Range Abnormal Flag Note LastModifiedBy Organization Detail LastModifiedTime 03/25/20 24 03/26/2024 COMP. METAB OLIC PANEL (14) glucose 98 mg/dL 70-99 Not Available [facility] ([facility]) [address], [place], [address], 03/30/2024 06:19:22 03/25/20 24 03/26/2024 COMP. METAB OLIC PANEL (14) BUN 15 mg/dL 8-27 Not Available [facility] ([facility]) [address], [place], [address], 03/30/2024 06:19:22 03/25/20 24 03/26/2024 COMP. METAB OLIC PANEL (14) creatinine 0.90 mg/dL 0.57-1 .00 Not Available [facility] ([facility]) [address], [place], [address], 03/30/2024 06:19:22 03/25/20 24 03/26/2024 COMP. METAB OLIC PANEL (14) eGFR 68 mL/mi n/1.7 3 >59 Not Available [facility] ([facility]) [address], [place], [address], 03/30/2024 06:19:22 03/25/20 24 03/26/2024 COMP. METAB OLIC PANEL (14) BUN/creatini ne ratio 17 12-28 Not Available [facility] ([facility]) [address], [place], [address], 03/30/2024 06:19:22 03/25/20 24 03/26/2024 COMP. METAB OLIC PANEL (14) sodium 140 mmol/ L 134-14 4 Not Available [facility] ([facility]) [address], [place], [address], 03/30/2024 06:19:22 03/25/20 24 03/26/2024 COMP. METAB OLIC PANEL (14) potassium 4.6 mmol/ L 3.5-5. 2 Not Available [facility] ([facility]) [address], [place], [address], 03/30/2024 06:19:22 03/25/20 24 03/26/2024 COMP. METAB OLIC PANEL (14) chloride 104 mmol/ L 96-106 Not Available [facility] ([facility]) [address] [facility] [place], [address], 03/30/2024 06:19:22 03/25/20 24 03/26/2024 COMP. METAB OLIC PANEL (14) carbon dioxide, total 24 mmol/ L 20-29 Not Available [facility] ([facility]) [address] [facility] [place], [address], 03/30/2024 06:19:22 03/25/20 24 03/26/2024 COMP. METAB OLIC PANEL (14) calcium 9.5 mg/dL 8.7-10 .3 Not Available [facility] ([facility]) [address] [facility] [place], [address], 03/30/2024 06:19:22 03/25/20 24 03/26/2024 COMP. METAB OLIC PANEL (14) protein, total 7.1 g/dL 6.0-8. 5 Not Available [facility] ([facility]) [address] [place], [address], 03/30/2024 06:19:22 03/25/20 24 03/26/2024 COMP. METAB OLIC PANEL (14) albumin 4.3 g/dL 3.8-4. 8 Not Available [facility] ([facility]) [address] [place], [address], 03/30/2024 06:19:22 03/25/20 24 03/26/2024 COMP. METAB OLIC PANEL (14) globulin, total 2.8 g/dL 1.5-4. 5 Not Available [facility] ([facility]) [address] [place], [address], 03/30/2024 06:19:22 03/25/20 24 03/26/2024 COMP. METAB OLIC PANEL (14) bilirubin, total 0.4 mg/dL 0.0-1. 2 Not Available [facility] ([facility]) [address] [place], [address], 03/30/2024 06:19:22 03/25/20 24 03/26/2024 COMP. METAB OLIC PANEL (14) alkaline phosphatase 94 IU/L 44-121 Not Available [facility] ([facility]) [address] [place], [address], 03/30/2024 06:19:22 03/25/20 24 03/26/2024 COMP. METAB OLIC PANEL (14) AST (SGOT) 15 IU/L 0-40 Not Available [facility] ([facility]) [address] [place], [address], 03/30/2024 06:19:22 03/25/20 24 03/26/2024 COMP. METAB OLIC PANEL (14) ALT (SGPT) 10 IU/L 0-32 Not Available [facility] ([facility]) [address] [place], [address], 03/30/2024 06:19:22 03/25/20 24 03/26/2024 MICRO SCOPI C EXAMI NATIO N WBC 11-30 /hpf 0-5 abnormal Not Available [facility] ([facility]) [address] [place], [address], 03/30/2024 06:19:23 03/25/20 24 03/26/2024 MICRO SCOPI C EXAMI NATIO N RBC >30 /hpf 0-2 abnormal Not Available [facility] ([facility]) [address] [place], [address], 03/30/2024 06:19:23 03/25/20 24 03/26/2024 MICRO SCOPI C EXAMI NATIO N epithelial cells (non renal) 0-10 /hpf 0-10 Not Available [facility] ([facility]) [address] [place], [address], 03/30/2024 06:19:23 03/25/20 24 03/26/2024 MICRO SCOPI C EXAMI NATIO N casts None seen /lpf nonese en Not Available [facility] ([facility]) [address], [place], [address], 03/30/2024 06:19:23 03/25/20 24 03/26/2024 MICRO SCOPI C EXAMI NATIO N bacteria Few nonese en/few Not Available [facility] ([facility]) [address], [place], [address], 03/30/2024 06:19:23 03/25/20 24 03/26/2024 UA WITH CULTU RE REFLE X specific gravity 1.010 1.005- 1.030 Not Available [facility] ([facility]) [address], [place], [address], 03/30/2024 06:19:24 03/25/20 24 03/26/2024 UA WITH CULTU RE REFLE X pH 7.5 5.0-7. 5 Not Available [facility] ([facility]) [address], [place], [address], 03/30/2024 06:19:24 03/25/20 24 03/26/2024 UA WITH CULTU RE REFLE X urine-color ORANGE yellow Not Available [facility] ([facility]) [address], [place], [address], 03/30/2024 06:19:24 03/25/20 24 03/26/2024 UA WITH CULTU RE REFLE X appearance CLEAR clear Not Available [facility] ([facility]) [address], [place], [address], 03/30/2024 06:19:24 03/25/20 24 03/26/2024 UA WITH CULTU RE REFLE X WBC esterase 2+ negati ve abnormal Not Available [facility] ([facility]) [address], [place], [address], 03/30/2024 06:19:24 03/25/20 24 03/26/2024 UA WITH CULTU RE REFLE X protein 2+ negati ve/tra ce abnormal Not Available [facility] ([facility]) [address], [place], [address], 03/30/2024 06:19:24 03/25/20 24 03/26/2024 UA WITH CULTU RE REFLE X glucose NEGATI VE negati ve Not Available [facility] ([facility]) [address], [place], [address], 03/30/2024 06:19:24 03/25/20 24 03/26/2024 UA WITH CULTU RE REFLE X ketones NEGATI VE negati ve Not Available [facility] ([facility]) [address], [place], [address], 03/30/2024 06:19:24 03/25/20 24 03/26/2024 UA WITH CULTU RE REFLE X occult blood 3+ negati ve abnormal Not Available [facility] ([facility]) [address], [place], [address], 03/30/2024 06:19:24 03/25/20 24 03/26/2024 UA WITH CULTU RE REFLE X bilirubin NEGATI VE negati ve Not Available [facility] ([facility]) [address], [place], [address], 03/30/2024 06:19:24 03/25/20 24 03/26/2024 UA WITH CULTU RE REFLE X urobilinogen ,semi-qn 0.2 mg/dL 0.2-1. 0 Not Available [facility] ([facility]) [address] [place], [address], 03/30/2024 06:19:24 03/25/20 24 03/26/2024 UA WITH CULTU RE REFLE X nitrite, urine POSITI VE negati ve abnormal Not Available [facility] ([facility]) [address], [place], [address], 03/30/2024 06:19:24 03/25/20 24 03/26/2024 UA WITH CULTU RE REFLE X microscopic examination SEE BELOW: Micro scopi c was indic ated and was perfo rmed. Not Available [facility] ([facility]) [address], [place], [address], 03/30/2024 06:19:24 03/25/20 24 03/26/2024 UA WITH CULTU RE REFLE X urinalysis reflex COMMEN T This speci men has refle xed to a Urine Cultu re. Not Available [facility] ([facility]) [address], [place], [address], 03/30/2024 06:19:24 03/25/20 24 03/26/2024 CBC WITH DIFFE RENTI AL/PL ATELE T WBC 7.3 x10e3 /uL 3.4-10 .8 Not Available [facility] ([facility]) [address] [place], [address], 03/30/2024 06:19:24 03/25/20 24 03/26/2024 CBC WITH DIFFE RENTI AL/PL ATELE T RBC 4.42 x10e6 /uL 3.77-5 .28 Not Available [facility] ([facility]) [address] [place], [address], 03/30/2024 06:19:24 03/25/20 24 03/26/2024 CBC WITH DIFFE RENTI AL/PL ATELE T hemoglobin 12.0 g/dL 11.1-1 5.9 Not Available [facility] ([facility]) [address] [place], [address], 03/30/2024 06:19:24 03/25/20 24 03/26/2024 CBC WITH DIFFE RENTI AL/PL ATELE T hematocrit 38.2 % 34.0-4 6.6 Not Available [facility] ([facility]) [address], [place], [address], 03/30/2024 06:19:24 03/25/2003/26/2024 CBC WITH DIFFE RENTI AL/PL ATELE T MCV 86 fL 79-97 Not Available [facility] ([facility]) [address], [place], [address], 03/30/2024 06:19:24 03/25/20 24 03/26/2024 CBC WITH DIFFE RENTI AL/PL ATELE T MCH 27.1 pg 26.6-3 3.0 Not Available [facility] ([facility]) [address], [place], [address], 03/30/2024 06:19:24 03/25/20 24 03/26/2024 CBC WITH DIFFE RENTI AL/PL ATELE T MCHC 31.4 g/dL 31.5-3 5.7 below low normal Not Available [facility] ([facility]) [address], [place], [address], 03/30/2024 06:19:24 03/25/2003/26/2024 CBC WITH DIFFE RENTI AL/PL ATELE T RDW 13.4 % 11.7-1 5.4 Not Available [facility] ([facility]) [address] [place], [address], 03/30/2024 06:19:24 03/25/20 24 03/26/2024 CBC WITH DIFFE RENTI AL/PL ATELE T platelets 358 x10e3 /uL 150-45 0 Not Available [facility] ([facility]) [address] [place], [address], 03/30/2024 06:19:24 03/25/20 24 03/26/2024 CBC WITH DIFFE RENTI AL/PL ATELE T neutrophils 53 % notest ab. Not Available [facility] ([facility]) [address], [place], [address], 03/30/2024 06:19:24 03/25/20 24 03/26/2024 CBC WITH DIFFE RENTI AL/PL ATELE T lymphs 34 % notest ab. Not Available [facility] ([facility]) [address], [place], [address], 03/30/2024 06:19:24 03/25/2003/26/2024 CBC WITH DIFFE RENTI AL/PL ATELE T monocytes 9 % notest ab. Not Available [facility] ([facility]) [address], [place], [address], 03/30/2024 06:19:24 03/25/20 24 03/26/2024 CBC WITH DIFFE RENTI AL/PL ATELE T eos 3 % notest ab. Not Available [facility] ([facility]) [address], [place], [address], 03/30/2024 06:19:24 03/25/20 24 03/26/2024 CBC WITH DIFFE RENTI AL/PL ATELE T basos 1 % notest ab. Not Available [facility] ([facility]) [address], [place], [address], 03/30/2024 06:19:24 03/25/2003/26/2024 CBC WITH DIFFE RENTI AL/PL ATELE T neutrophils (absolute) 3.8 x10e3 /uL 1.4-7. 0 Not Available [facility] ([facility]) [address], [place], [address], 03/30/2024 06:19:24 03/25/20 24 03/26/2024 CBC WITH DIFFE RENTI AL/PL ATELE T lymphs (absolute) 2.5 x10e3 /uL 0.7-3. 1 Not Available [facility] ([facility]) [address], [place], [address], 03/30/2024 06:19:24 03/25/20 24 03/26/2024 CBC WITH DIFFE RENTI AL/PL ATELE T monocytes(ab solute) 0.7 x10e3 /uL 0.1-0. 9 Not Available [facility] ([facility]) [address], [place], [address], 03/30/2024 06:19:24 03/25/20 24 03/26/2024 CBC WITH DIFFE RENTI AL/PL ATELE T eos (absolute) 0.2 x10e3 /uL 0.0-0. 4 Not Available [facility] ([facility]) [address], [place], [address], 03/30/2024 06:19:24 03/25/20 24 03/26/2024 CBC WITH DIFFE RENTI AL/PL ATELE T baso (absolute) 0.1 x10e3 /uL 0.0-0. 2 Not Available [facility] ([facility]) [address] [place], [address], 03/30/2024 06:19:24 03/25/2003/26/2024 CBC WITH DIFFE RENTI AL/PL ATELE T immature granulocytes 0 % notest ab. Not Available [facility] ([facility]) [address] [place], [address], 03/30/2024 06:19:24 03/25/20 24 03/26/2024 CBC WITH DIFFE RENTI AL/PL ATELE T immature grans (abs) 0.0 x10e3 /uL 0.0-0. 1 Not Available [facility] ([facility]) [address] [place], [address], 03/30/2024 06:19:24 03/25/20 24 03/29/2024 URINE CULTU RE, ROUTI NE urine culture, routine Final report abnormal Not Available [facility] ([facility]) [address], [place], [address], 03/30/2024 06:19:25 03/25/20 24 03/29/2024 URINE CULTU RE, ROUTI NE result 1 Provid encia rettge ri abnormal Great er than 100,0 00 colon y formi ng units per mL Not Available [facility] ([facility]) [address], [place], [address], 03/30/2024 06:19:25 03/25/20 24 03/29/2024 URINE CULTU RE, ROUTI NE antimicrobia l susceptibili ty Commen t S = Susce ptibl e; I = Inter media te; R = Resis tant P = Posit shweta; N = Negat shweta MICS are expre ssed in micro grams per mL Antib iotic RSLT# 1 RSLT# 2 RSLT# 3 RSLT# 4 Ampic illin R Cefep marbella S Ceftr iaxon e S Cefur oxime S Cipro floxa delfin S Genta micin S Imipe nem S Levof loxac in S Nitro furan toin R Piper acill in/Ta zobac brooks S Tetra cycli ne R Tobra mycin S Not Available [facility] ([facility]) [address] [facility], [place], [address], 03/30/2024 06:19:25 04/27/20 24 04/28/2024 MICRO SCOPI C EXAMI NATIO N WBC 0-5 /hpf 0-5 Not Available [facility] ([facility]) [address] [facility], [place], [address], 04/28/2024 13:12:20 04/27/20 24 04/28/2024 MICRO SCOPI C EXAMI NATIO N RBC NONE SEEN /hpf 0-2 Not Available [facility] ([facility]) [address], [place], [address], 04/28/2024 13:12:20 04/27/20 24 04/28/2024 MICRO SCOPI C EXAMI NATIO N epithelial cells (non renal) NONE SEEN /hpf 0-10 Not Available [facility] ([facility]) [address] [facility], [place], [address], 04/28/2024 13:12:20 04/27/20 24 04/28/2024 MICRO SCOPI C EXAMI NATIO N casts NONE SEEN /lpf nonese en Not Available [facility] ([facility]) [address] [facility], [place], [address], 04/28/2024 13:12:20 04/27/20 24 04/28/2024 MICRO SCOPI C EXAMI NATIO N crystals PRESEN T n/a abnormal Not Available [facility] ([facility]) [address] [facility], [place], [address], 04/28/2024 13:12:20 04/27/20 24 04/28/2024 MICRO SCOPI C EXAMI NATIO N crystal type AMORPH OUS SEDIME NT Tripl e Phosp hate Not Available [facility] ([facility]) [address], [place], [address], 04/28/2024 13:12:20 04/27/20 24 04/28/2024 MICRO SCOPI C EXAMI NATIO N bacteria MODERA TE nonese en/few abnormal Not Available [facility] ([facility]) [address] [facility], [place], [address], 04/28/2024 13:12:20 08/05/20 24 08/06/2024 LIPID PANEL cholesterol, total 158 mg/dL 100-19 9 Not Available [facility] ([facility]) [address] [facility], [place], [address], 08/06/2024 08:12:06 11/29/20 24 08/06/2024 LIPID PANEL triglyceride s 85 mg/dL 0-149 Not Available [facility] ([facility]) [address] [facility] [place], [address], 08/06/2024 08:12:06 08/05/20 24 08/06/2024 LIPID PANEL HDL cholesterol 74 mg/dL >39 Not Available [facility] ([facility]) [address] [facility] [place], [address], 08/06/2024 08:12:06 08/05/20 24 08/06/2024 LIPID PANEL VLDL cholesterol aurea 16 mg/dL 5-40 Not Available [facility] ([facility]) [address] [place], [address], 08/06/2024 08:12:06 08/05/20 24 08/06/2024 LIPID PANEL LDL chol calc ([facility]) 68 mg/dL 0-99 Not Available [facility] ([facility]) [address] [place], [address], 08/06/2024 08:12:06 08/05/20 24 08/06/2024 COMP. METAB OLIC PANEL (14) glucose 87 mg/dL 70-99 Not Available [facility] ([facility]) [address] [place], [address], 08/06/2024 08:12:07 08/05/20 24 08/06/2024 COMP. METAB OLIC PANEL (14) BUN 15 mg/dL 8-27 Not Available [facility] ([facility]) [address] [facility] [place], [address], 08/06/2024 08:12:07 08/05/20 24 08/06/2024 COMP. METAB OLIC PANEL (14) creatinine 0.77 mg/dL 0.57-1 .00 Not Available [facility] ([facility]) [address] [place], [address], 08/06/2024 08:12:07 08/05/20 24 08/06/2024 COMP. METAB OLIC PANEL (14) eGFR 82 mL/mi n/1.7 3 >59 Not Available [facility] ([facility]) [address] [facility], [place], [address], 08/06/2024 08:12:07 08/05/20 24 08/06/2024 COMP. METAB OLIC PANEL (14) BUN/creatini ne ratio 19 12-28 Not Available [facility] ([facility]) [address] [facility], [place], [address], 08/06/2024 08:12:07 08/05/20 24 08/06/2024 COMP. METAB OLIC PANEL (14) sodium 140 mmol/ L 134-14 4 Not Available [facility] ([facility]) [address] [facility], [place], [address], 08/06/2024 08:12:07 08/05/20 24 08/06/2024 COMP. METAB OLIC PANEL (14) potassium 4.7 mmol/ L 3.5-5. 2 Not Available [facility] ([facility]) [address] [facility], [place], [address], 08/06/2024 08:12:07 08/05/20 24 08/06/2024 COMP. METAB OLIC PANEL (14) chloride 106 mmol/ L 96-106 Not Available [facility] ([facility]) [address] [facility], [place], [address], 08/06/2024 08:12:07 08/05/20 24 08/06/2024 COMP. METAB OLIC PANEL (14) carbon dioxide, total 23 mmol/ L 20- Not Available [facility] ([facility]) [address] [facility], [place], [address], 08/06/2024 08:12:07 08/05/20 24 08/06/2024 COMP. METAB OLIC PANEL (14) calcium 9.3 mg/dL 8.7-10 .3 Not Available [facility] ([facility]) [address] [place], [address], 08/06/2024 08:12:07 08/05/20 24 08/06/2024 COMP. METAB OLIC PANEL (14) protein, total 6.8 g/dL 6.0-8. 5 Not Available [facility] ([facility]) [address] [place], [address], 08/06/2024 08:12:07 08/05/20 24 08/06/2024 COMP. METAB OLIC PANEL (14) albumin 4.2 g/dL 3.8-4. 8 Not Available [facility] ([facility]) [address] [place], [address], 08/06/2024 08:12:07 08/05/20 24 08/06/2024 COMP. METAB OLIC PANEL (14) globulin, total 2.6 g/dL 1.5-4. 5 Not Available [facility] ([facility]) [address] [place], [address], 08/06/2024 08:12:07 08/05/20 24 08/06/2024 COMP. METAB OLIC PANEL (14) bilirubin, total 0.3 mg/dL 0.0-1. 2 Not Available [facility] ([facility]) [address] [place], [address], 08/06/2024 08:12:07 08/05/20 24 08/06/2024 COMP. METAB OLIC PANEL (14) alkaline phosphatase 99 IU/L 44-121 Not Available [facility] ([facility]) [address] [place], [address], 08/06/2024 08:12:07 08/05/20 24 08/06/2024 COMP. METAB OLIC PANEL (14) AST (SGOT) 25 IU/L 0-40 Not Available [facility] ([facility]) [address] [facility], [place], [address], 08/06/2024 08:12:07 08/05/20 24 08/06/2024 COMP. METAB OLIC PANEL (14) ALT (SGPT) 17 IU/L 0-32 Not Available [facility] ([facility]) [address] [facility], [place], [address], 08/06/2024 08:12:07 08/05/20 24 08/06/2024 CBC WITH DIFFE RENTI AL/PL ATELE T WBC 7.1 x10e3 /uL 3.4-10 .8 Eff ectiv e Decem jordi 2023 profi liat [id number] 5 WBC will be made* * non-o rdera ble as a stand -darryl e order code. Not Available [facility] ([facility]) [address] [facility], [place], [address], 08/06/2024 08:12:09 08/05/20 24 08/06/2024 CBC WITH DIFFE RENTI AL/PL ATELE T RBC 4.21 x10e6 /uL 3.77-5 .28 Not Available [facility] ([facility]) [address] [facility], [place], [address], 08/06/2024 08:12:09 08/05/20 24 08/06/2024 CBC WITH DIFFE RENTI AL/PL ATELE T hemoglobin 11.2 g/dL 11.1-1 5.9 Not Available [facility] ([facility]) [address] [place], [address], 08/06/2024 08:12:09 08/05/20 24 08/06/2024 CBC WITH DIFFE RENTI AL/PL ATELE T hematocrit 36.7 % 34.0-4 6.6 Not Available [facility] ([facility]) [address] [place], [address], 08/06/2024 08:12:09 08/05/20 24 08/06/2024 CBC WITH DIFFE RENTI AL/PL ATELE T MCV 87 fL 79-97 Not Available [facility] ([facility]) [address] [facility], [place], [address], 08/06/2024 08:12:09 08/05/20 24 08/06/2024 CBC WITH DIFFE RENTI AL/PL ATELE T MCH 26.6 pg 26.6-3 3.0 Not Available [facility] ([facility]) [address] [facility], [place], [address], 08/06/2024 08:12:09 08/05/20 24 08/06/2024 CBC WITH DIFFE RENTI AL/PL ATELE T MCHC 30.5 g/dL 31.5-3 5.7 below low normal Not Available [facility] ([facility]) [address] [facility], [place], [address], 08/06/2024 08:12:09 08/05/20 24 08/06/2024 CBC WITH DIFFE RENTI AL/PL ATELE T RDW 12.9 % 11.7-1 5.4 Not Available [facility] ([facility]) [address] [facility], [place], [address], 08/06/2024 08:12:09 08/05/20 24 08/06/2024 CBC WITH DIFFE RENTI AL/PL ATELE T platelets 309 x10e3 /uL 150-45 0 Not Available [facility] ([facility]) [address] [facility], [place], [address], 08/06/2024 08:12:09 08/05/20 24 08/06/2024 CBC WITH DIFFE RENTI AL/PL ATELE T neutrophils 59 % notest ab. Not Available [facility] ([facility]) [address] [facility], [place], [address], 08/06/2024 08:12:09 11/29/20 24 08/06/2024 CBC WITH DIFFE RENTI AL/PL ATELE T lymphs 27 % notest ab. Not Available [facility] ([facility]) [address] [facility], [place], [address], 08/06/2024 08:12:09 08/05/20 24 08/06/2024 CBC WITH DIFFE RENTI AL/PL ATELE T monocytes 10 % notest ab. Not Available [facility] ([facility]) [address] [facility], [place], [address], 08/06/2024 08:12:09 08/05/20 24 08/06/2024 CBC WITH DIFFE RENTI AL/PL ATELE T eos 3 % notest ab. Not Available [facility] ([facility]) [address] [facility], [place], [address], 08/06/2024 08:12:09 08/05/20 24 08/06/2024 CBC WITH DIFFE RENTI AL/PL ATELE T basos 1 % notest ab. Not Available [facility] ([facility]) [address] [facility], [place], [address], 08/06/2024 08:12:09 08/05/20 24 08/06/2024 CBC WITH DIFFE RENTI AL/PL ATELE T neutrophils (absolute) 4.2 x10e3 /uL 1.4-7. 0 Not Available [facility] ([facility]) [address] [facility], [place], [address], 08/06/2024 08:12:09 08/05/20 24 08/06/2024 CBC WITH DIFFE RENTI AL/PL ATELE T lymphs (absolute) 1.9 x10e3 /uL 0.7-3. 1 Not Available [facility] ([facility]) [address] [facility], [place], [address], 08/06/2024 08:12:09 08/05/20 24 08/06/2024 CBC WITH DIFFE RENTI AL/PL ATELE T monocytes(ab solute) 0.7 x10e3 /uL 0.1-0. 9 Not Available [facility] ([facility]) [address] [facility], [place], [address], 08/06/2024 08:12:09 08/05/20 24 08/06/2024 CBC WITH DIFFE RENTI AL/PL ATELE T eos (absolute) 0.2 x10e3 /uL 0.0-0. 4 Not Available [facility] ([facility]) [address] [facility], [place], [address], 08/06/2024 08:12:09 08/05/20 24 08/06/2024 CBC WITH DIFFE RENTI AL/PL ATELE T baso (absolute) 0.1 x10e3 /uL 0.0-0. 2 Not Available [facility] ([facility]) [address] [facility], [place], [address], 08/06/2024 08:12:09 08/05/20 24 08/06/2024 CBC WITH DIFFE RENTI AL/PL ATELE T immature granulocytes 0 % notest ab. Not Available [facility] ([facility]) [address] [facility], [place], [address], 08/06/2024 08:12:09 08/05/20 24 08/06/2024 CBC WITH DIFFE RENTI AL/PL ATELE T immature grans (abs) 0.0 x10e3 /uL 0.0-0. 1 Not Available [facility] ([facility]) [address] [place], [address], 08/06/2024 08:12:09 08/05/20 24 08/06/2024 VITAM IN D, 25-HY DROXY vitamin D, 25-hydroxy 56.1 NG/mL 30.0-1 00.0 Vitam in D defic iency has been defin ed by the Insti tute of Medic ine and an Endoc rine Socie ty pract ice guide line as a level of serum 25-OH vitam in D less than 20 ng/mL (1,2) . The Endoc rine Socie ty went on to furth er defin e vitam in D insuf ficie ncy as a level betwe en 21 and 29 ng/mL (2). 1. IOM (Inst itute of Medic ine). 2010. Dieta ry refer ence chioma es for calci um and D. Misha hayes [place]: The Natio nal [facility] Press . 2. Bryant kumar MF, [place], Bisch off-F errar i LOYA, et al. Evalu ation , treat ment, and preve ntion of vitam in D defic iency : an Endoc rine Socie ty clini aurea pract ice guide line. JCEM. 2010; 96(7) :1911 -30. Not Available [facility] ([facility]) [address] [facility], [place], [address], 08/06/2024 08:12:10 03/09/20 24 03/08/2024 US, zakia rodriguezou s, lower extre mity No observ ation record ed. [facility] [address] [place], [address], 03/09/2024 12:27:37 12/10/19 25 09/16/2024 US, zakia rodriguezou s, lower extre mity No observ ation record ed. [facility] [address] [facility] [address], [place], [address], 12/12/2024 16:19:23 Result Notes None recorded. Problems Name Problem SNOMED Code Status Onset Date Resolution Date Notes Provider Name and Address Organization Details Recorded Time Essential hypertension 21053857 Active 2023 CARIE Sewell, [place] - [facility] 4 11:25:57 Vitamin D deficiency 11302010 Active 2023 CARIE Sewell, [place] - [facility] 4 11:25:58 Hyperlipidemia 59713368 Active 2023 Joanne Mendez MD Attn: Ari sauer,[address], [place], [address], [place] - [facility] 4 22:45:41 Insomnia 364056114 Active 2023 Joanne Mendez MD Attn: Ari sauer,[address], [place], [address], [place] - [facility] 4 22:47:15 Deep venous thrombosis of lower extremity 525610839 Active 2023 Griselda Mckeon MA null, [place] - [facility] 4 11:45:06 Blood in urine 00055102 Active 2023 CARIE Sewell, [place] - [facility] 4 11:45:07 Problem Notes None recorded. Procedures Surgical History Date Name Laterality Status Provider Name and Address Organization Details Recorded Time Total hysterectomy completed Danna Mckee MA MD - [facility] 11/20/2023 10:34:29 Imaging Results Imaging Date Name Status LastModified by Organiz ation Details LastModified Time 03/08/2024 US, duplex, venous, lower extremity completed [facility] [address] [place], [address], 03/09/2024 12:27:37 09/16/2024 US, duplex, venous, lower extremity completed [facility] [address], [address], 12/12/2024 16:19:23 Procedure Notes None recorded. Medical Equipment None Reported. Allergies Allergen ID Allergen Name Allergen Category Reaction Reaction Severity Criticality Documentation Date Start Date Code Code System Note Provider Name and Address Organization Details Recorded Time 423418 lisinopri l medicatio n Not available Not available low 11/20/2023 78729 RxNorm Pt state s she could not stand Not Available Not Available Not Available Medications Name Sig Start Date Stop Date Status Note LastModified by Organization Details LastModified Time atorvastati n 10 mg tablet TAKE 1 TABLET BY MOUTH DAILY active Not Available Not Available No t Available hydrocodone 5 mg-acetamin ophen 325 mg tablet TAKE 1 TABLET BY MOUTH EVERY 6 HOURS NEEDED 04/12 completed Not Available Not Available Not Available amlodipine 5 mg tablet TAKE 1 TABLET BY MOUTH DAILY active Not Available Not Available No t Available ergocalcife rol (vitamin D2) 1,250 mcg (50,000 unit) capsule TAKE 1 CAPSULE BY MOUTH EVERY WEEK active Not Available Not Available No t Available lisinopril 10 mg-hydrochl orothiazide 12.5 mg tablet TAKE 1 TABLET BY MOUTH EVERY DAY 11/19 completed Not Available Not Available Not Available methylpredn isolone 4 mg tablets in a dose pack USE DIRECTED active Not Available Not Available No t Available cefdinir 300 mg capsule TAKE 1 CAPSULE BY MOUTH TWICE DAILY FOR 5 DAYS 04/12 completed Not Available Not Available Not Available naproxen 500 mg tablet TAKE 1 TABLET BY MOUTH TWICE DAILY WITH FOOD 04/12 completed Not Available Not Available Not Available oxycodone 5 mg tablet TAKE 1 TABLET BY MOUTH EVERY 6 HOURS NEEDED FOR PAIN OR MODERATE TO SEVERE PAIN 04/12 completed Not Available Not Available Not Available Eliquis 5 mg tablet TAKE 1 TABLET BY MOUTH TWICE DAILY active Not Available Not Available No t Available Vitals Date Recorded Body height Body mass index (BMI) Body weight Pain severity - 0-10 verbal numeric rating [Score] - Reported Oxygen saturation Oxygen saturation in Arterial blood by Pulse oximetry Heart rate Systolic blood pressure Diastolic blood pressure Provider Name and Address Organization Details Last Updated DateTime 4 167.64 cm 27.8 kg/m2 93370.8 9 g 7 97 % 97 % 103 /min 130 mm[Hg] 78 mm[Hg] Yany Narayan MA MD - [facility] 4 12:49:39 Date Recorded Body height Body mass index (BMI) Body weight Heart rate Oxygen saturation Oxygen saturation in Arterial blood by Pulse oximetry Systolic blood pressure Diastolic blood pressure Provider Name and Address Organization Details Last Updated DateTime 4 167.64 cm 27.9 kg/m2 94402.4 8 g 86 /min 98 % 98 % 134 mm[Hg] 72 mm[Hg] Johanna Santos MA [place] - [facility] 4 11:12:58 Date Recorded Body height Body mass index (BMI) Body weight Heart rate Oxygen saturation Oxygen saturation in Arterial blood by Pulse oximetry Systolic blood pressure Diastolic blood pressure Provider Name and Address Organization Details Last Updated DateTime 4 167.64 cm 27.9 kg/m2 20469.4 8 g 95 /min 97 % 97 % 124 mm[Hg] 72 mm[Hg] Yany Narayan MA [facility] 4 15:59:17 Date Recorded Body height Provider Name an d Address Organization Details Last Updated DateTime 08/05/2024 167.64 cm Kinza Thomason MA [facility] 08/05/2024 11:20:05 Date Recorded Body mass index (BMI) Body weight Heart rate Oxygen saturation Oxygen saturation in Arterial blood by Pulse oximetry Systolic blood pressure Diastolic blood pressure Provider Name and Address Organization Details Last Updated DateTime 4 29.5 kg/m2 97777.4 g 87 /min 98 % 98 % 118 mm[Hg] 72 mm[Hg] Bailey Lyons MA [facility] 4 11:35:46 Date Recorded Body height Body mass index (BMI) Body weight Heart rate Oxygen saturation Oxygen saturation in Arterial blood by Pulse oximetry Systolic blood pressure Diastolic blood pressure Provider Name and Address Organization Details Last Updated DateTime 5 167.64 cm 30.2 kg/m2 70530.1 3 g 90 /min 98 % 98 % 120 mm[Hg] 68 mm[Hg] Johanna Santos MA [facility] 5 10:53:15 Social History Question Answer Notes LastModified by Organizat ion Details LastModified Time Tobacco Smoking Status Former Smoker Danna Mckee MA [facility] 11/20/2023 10:33:30 Do You Have An Advance Directive? No [email or web address] Information not available 08/05/2024 What Is Your Level Of Alcohol Consumption? None Information not available 11/20/2023 Are You Blind Or Do You Have Difficulty Seeing? No Information not available 11/20/2023 What Is Your Level Of Caffeine Consumption? Occasional Information not available 11/20/2023 In The 14 Days Before Symptom Onset, Have You Had Close Contact With A Laboratory-[facility] COVID-19 While That Case Was Ill? No Information not available 03/25/2024 In The 14 Days Before Symptom Onset, Have You Had Close Contact With A Person Who Is Under Investigation For COVID-19 While That Person Was Ill? No Information not available 03/25/2024 Have You Been To An Area Known To Be High Risk For COVID-19? No Information not available 03/25/2024 Are You Currently Employed? No Information not available 03/25/2024 Are You Deaf Or Do You Have Serious Difficulty Hearing? No Information not available 11/20/2023 What Type Of Diet Are You Following? REGULAR Information not available 11/20/2023 Are There Any Guns Present In Your Home? No Information not available 03/25/2024 What Was The Date Of Your Most Recent Tobacco Screening? 12/09/2024 Information not available 12/09/2024 Do You Use Your Seat Belt Or Car Seat Routinely? Yes Information not available 03/25/2024 Do You Have Smoke And Carbon Monoxide Detectors In Your Home? Yes Information not available 11/20/2023 Do You Use Any Illicit Or Recreational Drugs? No Information not available 11/20/2023 Do You Use Sunscreen Routinely? Yes Information not available 03/25/2024 Has Tobacco Cessation Counseling Been Provided? No Information not available 04/12/2024 How Many Years Have You Smoked Tobacco? 10 Information not available 11/20/2023 Do You Or Have You Ever Used Any Other Forms Of Tobacco Or Nicotine? No Information not available 04/12/2024 Sex: Female Functional Status Question Answer Note LastModified by Organization D etails LastModified Time Are you able to care for yourself? Yes Information n ot available 11/20/2023 Mental Status None recorded. Family History Relationship Description Onset Age of this Age Resolved Age Notes LastModified by Organization Details LastModified Time Sister Malignant tumor of breast [email or web address] Not available 2023 10:33:13 Medical History Condition Response High Blood Pressure Y Cancer Y High Cholesterol Y Gynecological HistoryNo gynecological history recorded. Obstetrics History GPAL:G 0 P 0 0 0 0 Immunizations Vaccine Type Date Status Note Provider Nam e and Address Organization Details Recorded Time Influenza, high-dose, quadrivalent, PF 2 completed Danna Rafi, [place], [place] [facility] 11/20/2023 10:32:58 Influenza, adjuvanted, quadrivalent, PF 1 completed Danna [place], [place], [place] [facility] 11/20/2023 10:32:58 Influenza, adjuvanted, quadrivalent, PF 0 completed Danna Rafi, [place] [facility] 11/20/2023 10:32:58 Influenza, adjuvanted, quadrivalent, PF 3 completed Danna [place], [place], [place] [facility] 11/20/2023 10:32:58 COVID-19, mRNA, LNP-S, PF, 30 mcg/0.3 mL dose 1 completed Danna [place], [place], [place] [facility] 11/20/2023 10:32:59 COVID-19, mRNA, LNP-S, PF, 30 mcg/0.3 mL dose 1 completed Danna [place], [place] [facility] 11/20/2023 10:32:59 COVID-19, mRNA, LNP-S, PF, 30 mcg/0.3 mL dose 1 completed Danna [place], [place] [facility] 11/20/2023 10:32:59 COVID-19, mRNA, LNP-S, PF, 30 mcg/0.3 mL dose, shalini-sucrose 2 completed Danna [place], [place] [facility] 11/20/2023 10:32:59 COVID-19, mRNA, LNP-S, bivalent, PF, 30 mcg/0.3 mL dose 2 completed Danna [place], [place] [facility] 11/20/2023 10:32:59 COVID-19, mRNA, LNP-S, PF, shalini-sucrose, 30 mcg/0.3 mL 3 completed Danna [place], [place] [facility] 11/20/2023 10:32:59 pneumococcal polysaccharide PPV23 8 completed Danna [place], [place] [facility] 11/20/2023 10:32:59 influenza, unspecified formulation 2 completed Danna Mckee [place] [facility] 11/20/2023 10:32:59 influenza, unspecified formulation 8 completed Danna [place] [facility] 11/20/2023 10:32:59 Pneumococcal conjugate PCV 13 7 completed Danna Mckee [place] [facility] 11/20/2023 10:32:59 zoster live 5 completed Danna Mckee [place] [facility] 11/20/2023 10:32:59 Influenza, high-dose, trivalent, PF 0 completed CARIE [place] [facility] 11/20/2023 10:32:59 Influenza, high-dose, trivalent, PF 7 completed [place] [facility] 11/20/2023 10:32:59 COVID-19, mRNA, LNP-S, PF, shalini-sucrose, 30 mcg/0.3 mL 4 completed CARIE [place] [facility] 08/10/2024 17:33:03 Influenza, high-dose, trivalent, PF 4 completed CARIE [place] [facility] 08/10/2024 17:33:03 Past Encounters Encounter ID Performer Location Encounter Start Date Encounter Closed Date Diagnosis/Indication Diagnosis SNOMED-CT Code Diagnosis ICD10 Code Diagnosis Note [id number] MD Charles Trejo (Adult Med) [address] [place] [id number] 11/20/2023 10:02:16 11/20/2023 11:26:12 Essential hypertension 55126682 I10 Vitamin D deficiency 347 43898 E55.9 Hyperlipidemia 14654922 E78.5 Insomnia 849228146 G47.0 0 Osteopenia 484639911 M85 .80 [id number] MD Charles Trejo (Adult Med) [address] [place] [id number] 03/08/2024 12:25:02 03/08/2024 13:17:25 Obesity 948822216 E66.8 Swelling of lower leg 44 8084954 R22.40 Essential hypertension 10123951 I10 Hyperlipidemia 24425666 E78.5 [id number] MD Charles Trejo (Adult Med) [address] [place] [phone] 03/25/2024 10:23:45 03/25/2024 11:48:04 Blood in urine 52621916 R31.9 Deep venou s thrombosis of lower extremity 503732129 I82.409 Essential hypertension 77871259 I10 Hyperlipidemia 58610683 E78.5 [id number] MD Charles Trejo (Adult Med) [address] [place] [id number] 0 04/12/2024 15:05:20 04/12/2024 16:56:58 Urinary tract infectious disease 06745718 N39.0 Deep venou s thrombosis of lower extremity 157310745 I82.409 Essential hypertension 29252861 I10 Hyperlipidemia 71432638 E78.5 [id number] MD Charles Trejo (Adult Med) [address] [place] [phone] 08/05/2024 11:05:32 08/05/2024 12:03:28 Body mass index 25-29 - overweight 226529351 Z68.29 Deep venou s thrombosis of lower extremity 322600876 I82.409 Vitamin D below reference range 532701940 E55.9 Essential hypertension 80095266 I10 Hyperlipidemia 99132679 E78.5 [id number] MD Charles Trejo (Adult Med) [address] [place] [id number] 12/09/2024 10:37:50 12/09/2024 11:20:05 Body mass index 30+ - obesity 115658457 Z68.30 Obesity 120103481 E66.9 Screening mammography 24 610394 Z12.31 Essential hypertension 39031710 I10 Hyperlipidemia 05966807 E78.5 Vitamin D deficiency 347 70397 E55.9 Deep venou s thrombosis of lower extremity 733619241 I82.409 Health Concerns Section Related Observation LastModified by Organization Detai ls LastModified Time None Recorded Concern Status LastModified by Organization Details LastModified Time None Recorded Advance Directives Directive N: Payers Encounter Date Sequence Insurance Name Policy Number Policy Lind Covered Member ID Lind Member ID Guarantor Name 03/08/2024 1 [facility] [id number] Caitlin Soriano [id number] Caitlin Soriano 03/25/2024 1 [facility] (MEDICARE REPLACEMENT/A DVANTAGE - HMO) [id number] Caitlin Soriano [id number] Caitlin Soriano 04/12/2024 1 [facility] (MEDICARE REPLACEMENT/A DVANTAGE - HMO) [id number] Caitlin Soriano [id number] Caitlin Soriano 08/05/2024 1 [facility] (MEDICARE REPLACEMENT/A DVANTAGE - HMO) [id number] Caitlin Soriano [id number] Caitlin Soriano 12/09/2024 1 [facility] (MEDICARE REPLACEMENT/A DVANTAGE - HMO) [id number] Caitlin Soriano [id number] Caitlin Soriano Notes Date Note Type Note Provider Name and Address Organization Details Recorded Time 03/08/2024 text/html swollen painful right leg. Went to the emergency room. They did not have a line maintenance technician. They sent her home. No chest pain or shortness of breath. hypertension has been stable dyslipidemia [place] watch her fat intake Joanne Mendez MD Attn: Accounting, [address] [place], [address], [facility] 03/27/2024 18:30:30 03/25/2024 text/html 1. DVT no chest pain or shortness of breath 2. Bruise in her right leg without any loss of function no numbness or tingling no trauma. 3. She has noticed some small amounts of blood in her urine. Hypertension no headache or dizziness. Dyslipidemia she is taking her atorvastatin trying to follow a low-fat diet Joanne eMndez MD Attn: Accounting, [address] [place], [address], [facility] 03/25/2024 21:49:49 04/12/2024 text/html 1. DVT no chest pain or shortness of breath 2. some dysuria. 3. She has noticed some small amounts of blood in her urine. Hypertension no headache or dizziness. Dyslipidemia she is taking her atorvastatin trying to follow a low-fat diet Joanne Mendez MD Attn: Accounting,[address], [place], [address], [place] - [facility] 04/30/2024 18:06:33 08/05/2024 text/html DVT right leg st ill has some swelling. No side effects from the Eliquis. Hyperlipidemia does try to follow a low-fat diet she is taking her atorvastatin. Hypertension no headache no dizziness blood pressure is controlled. History of low vitamin-D she is taking supplementation just ran out we will get that evaluated she has had trouble because of the problem with her right arm getting mammogram she broke the elbow she can not get her arm up to get a proper study just yet but she is going through physical therapy will be due for colonoscopy in 2024 Joanne Mendez MD Attn: Accounting,[address] , [place], [address], [facility] - [facility] 08/05/2024 21:42:04 12/09/2024 text/html no problems refe rable to her DVT low vitamin-D level taking her medicine without any side effects dyslipidemia tolerating her atorvastatin trying to watch red meat obesity could help for her to lose a few lb hypertension blood pressure is doing fine Jonane Mendez MD Attn: Accounting,[address] [facility], [place], [address], [facility] - [facility] 12/09/2024 21:27:05 OBGyn Episode No OBEpisode recorded.
--- OUTSIDE RECORDS SUMMARY | 2024-12-21 10:15 | XMS_ITS | Clinical Summary ---
Author Organization [facility] Address [address] [place] [address] Care Team Providers Care Sap Security Consultant Name Role Phone Meliton Mendez MD Primary Care Provider [phone] Source Comments [facility],non-owned Affiliates and Associated Physician Practices is amultiple site organization consisting of ambulatory clinics and hospital sitesin [place], [place], [place] and [place]. This disclosure is being madepursuant to the Care Everywhere program and may not contain all information available regarding this patient. Last updated 18.[facility] Allergies No known active allergies Medications * Be aware that medications may not be up to date on this document. Alwaysverify current medications with the patient. vitamin D, ergocalciferol , (Drisdol) 1.25 MG (22850 UT) capsule Take 1 (one) capsule by mouth every 7 days Active amLODIPine (Norvasc) 5 MG tablet Take 1 (one) tablet by mouth once daily 4 Active atorvastatin (Lipitor) 10 MG tablet Take 1 (one) tablet by mouth once daily 4 Active Eliquis 5 MG tablet TAKE 2 TABLETS BY MOUTH TWICE DAILY FOR 6 DAYS THEN TAKE 1 TABLET BY MOUTH TWICE DAILY 4 Active acetaminophen (Tylenol) 500 MG tablet TAKE 2 TABLETS BY MOUTH EVERY 3 TIMES A DAY. MAXIMUM ALLOWABLE ACETAMINOPHEN AMOUNT: 4 GRAMS (4,000MG) PER 24 HOURS. 42 tablet 4 Active Additional Information Patient not taking.Reported on 04/27/2024 methylPREDNISo lone (Medrol Dosepak) 4 MG tablet Take by mouth as directed Take as directed by mouth per package instructions. 21 tablet Active methylPREDNISo lone (Medrol Dosepak) 4 MG tablet Take by mouth as directed Follow package insert dosing for six day supply. 21 tablet Active Hospital, Clinic, or Other Facility Administered Medication Ordered Dose Route Frequency Start Date End Date Status ROPivacaine (Naropin) 5 MG/ML (0.5%) injection 5 mgIndications:Adhesi ve capsulitis of right shoulder 5 mg INFILTRATION ONCE 11/28/2024 11/28/2024 Ended triamcinolone acetonide (Kenalog-40) injection 40 mgIndications:Adhesi ve capsulitis of right shoulder 40 mg IX ONCE 11/28/2024 11/28/2024 Ended Active Problems Problem Noted Date Diagnosed Date Closed displaced fracture of neck of right radiu s 02/23/2024 Encounters Date Type Department Care Team Description 11/28/2024 9:30 AM CDT Office Visit [facility] - Orthopedics [address] [place] [phone] Angie Wood MD Adhesive capsulitis of right shoulder (Primary Dx) 11/28/2024 Travel 10/17/2024 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 Office Visit [facility] - Orthopedics [address] [place] [phone] Angie Wood MD Adhesive capsulitis of right shoulder (Primary Dx) 10/17/2024 Travel from Last 3 Months Social History Tobacco Use Types Packs/Day Years Used Date Smoking Tobacco: Never Smokeless Tobacco: Never Tobacco Cessation:Counseling Given: Not Answered Alcohol Use Standard Drinks/Week Comments Never 0 (1 standard drink = 0.6 oz pur e alcohol) PHQ-2 Answer Date Recorded Patient Health Questionnaire-2 Score 0 10/10/2024 Comments No Sex and Gender Information Value Date Recorded Sex Assigned at Not on file Legal Sex Female 5:51 AM AIRPLANE CHARTER CLERK Gender Identity Not on file Sexual Orientation Not on file Last Filed Vital Signs Vital Sign Reading Time Taken Comments Blood Pressure 125/70 12/21/2023 5:30 PM CDT Pulse 98 12/21/2023 5:30 PM CDT Temperature 36.7 C (98.1 F) 12/21/2023 5:10 PM CDT Respiratory Rate 19 12/21/2023 5:30 PM CDT Oxygen Saturation 92% 12/21/2023 5:30 PM CDT Inhaled Oxygen Concentration - - Weight 79.4 kg (175 lb) 11/28/2024 9:49 AM CDT Height 167.6 cm (5' 6 ) 11/28/2024 9:49 AM CDT Body Mass Index 28.25 11/28/2024 9:49 AM CDT Plan of Treatment Upcoming Encounters Date Type Department Care Team (Late st Contact Info) Description 01/09/2025 10:10 AM CDT Office Visit [facility] - Orthopedics [address] [place] [address] Angie Wood MD [address] [facility] [address] [place] [address] Health Maintenance Due Date Last Done Comments BONE DENSITY TESTING 1950 COLOGUARD (AGES 45-75) - COLON CA SCREENING 1952 COLON MONITORING 1952 COLONOSCOPY - COLON CA SCREENING 1952 CT COLONOGRAPHY - COLON CA SCREENING 1952 Colorectal Cancer Screening 1950 FIT - COLON CA SCREENING 1952 FLEX SIG - COLON CA SCREENING 1950 MAMMOGRAM 1952 HEPATITIS C SCREENING 07/04/1970 DTAP/TDAP/TD VACCINES (1 - Tdap) 1971 PNEUMOCOCCAL VACCINE 50+ (1 of 1 - PCV) 2002 ZOSTER VACCINE (1 of 2) 2002 COVID-19 VACCINE (3 - season) 2024 11/12/2020, 10/22/2020 MEDICARE AWV CALENDAR YEAR 2024 INFLUENZA VACCINE (Season Ended) 2025 06/09/2022, 06/15/2020, 10/19/2019, Additional history exists Respiratory Syncytial Virus (RSV) Vaccine Pt: or over 60 yrs (1 - 1-dose 75+ series) 2027 DEPRESSION SCREENING Completed 09/14/2024, 12/16/19 24 HEPATITIS B VACCINE Aged Out No longe r eligible based on patient's age to complete this topic HIB VACCINE Aged Out No longer eligi ble based on patient's age to complete this topic HPV VACCINE Aged Out No longer eligi ble based on patient's age to complete this topic MENINGOCOCCAL (Group B) VACCINE SHARED DECISION-MAKING Aged Out No longer eligible based on patient's age to complete this topic MENINGOCOCCAL GROUPS A/C/Y/W VACCINE Aged Out No longer eligible based on patient's age to complete this topic Medical Devices Implanted Type Area Mortgage Accounting Clerk Device Identifier Shelf Expiration Date Model / Serial / Lot Stem Radl 26mm 7mm Explor David Bañuelos Implanted:Qty: 1 on 12/21/2023 by Baudilio Carr MD at [facility] Right: [employer] 06/12/2033 / / [id number] Explor Modular Radial Head Implanted:Qty: 1 on 12/21/2023 by Baudilio Carr MD at [facility] Right: [employer] 03/05/2032 / / [id number] Procedures Procedure Name Priority Date/Time Associated Diagnosis Comments DE DRAIN/INJECT LARGE JOINT/BURSA Routine 12/03/2024 7:26 AM CDT Adhesive capsulitis of right shoulder DE DRAIN/INJECT LARGE JOINT/BURSA Routine 10/20/2024 8:14 AM AIRPLANE CHARTER CLERK Adhesive capsulitis of right shoulder from Last 3 Months Results * DE DRAIN/INJECT LARGE JOINT/BURSA (12/03/2024 7:26 AM CDT) Narrative Angie Wood MD - 12/03/2024 7:26 AM CDT Angie Wood MD 12/03/2024 7:26 AM After risks, benefits, alternatives were discussed, the patient elected to proceed forward with corticosteroid injection. The appropriate site and side was confirmed with the patient. The right shoulder was prepped with betadine and alcohol. Ethyl Chloride was used to anesthetize the skin. A combination of 2cc's of 0.5% Ropivacaine + 1cc of 40mg Kenalog was injected into the glenohumeral joint from the posterior portal trajectory. A sterile bandage was placed. The patient tolerated the procedure well without complications. Post-injection instructions were given to the patient. Angie Wood MD PROCEDURE/MINOR SURGICAL ORDERAB LES Final Result * DE DRAIN/INJECT LARGE JOINT/BURSA (10/20/2024 8:14 AM AIRPLANE CHARTER CLERK) Narrative Angie Wood MD - 10/20/2024 8:14 AM AIRPLANE CHARTER CLERK Angie Wood MD 10/20/2024 8:15 AM After risks, benefits, alternatives were discussed, the patient elected to proceed forward with corticosteroid injection. The appropriate site and side was confirmed with the patient. The right shoulder was prepped with betadine and alcohol. Ethyl Chloride was used to anesthetize the skin. A combination of 2cc's of 0.5% Ropivacaine + 1cc of 40mg Kenalog was injected into the glenohumeral joint from the posterior portal trajectory. A sterile bandage was placed. The patient tolerated the procedure well without complications. Post-injection instructions were given to the patient. Angie Wood MD PROCEDURE/MINOR SURGICAL ORDERAB LES Final Result from Last 3 Months Insurance [facility] MANAGED MEDICARE ADV Care Teams Sap Security Consultant Relationship Specialty Start Date End Date Meliton Mendez MD [address] [place] [phone] PCP - General Internal Medicine 12/16/23
== END 2024-12-21 09:26 | disposition home or self-care (01) ==
LOC: CHSIMG 09:28
PROVIDERS: PCP Internal Medicine; Visit Provider Internal Medicine
DX: Z12.31 Encounter for screening mammogram for malignant neoplasm of breast (principal)
CPT/HCPCS: 77063; 77067